=== PATIENT | male | born 1960 | race Caucasian/White ===

== ENCOUNTER → 2025-02-05 | Outpatient (CLI) | payer MEDICARE, OTHER, SELFPAY ==
--- OUTSIDE RECORDS SUMMARY | 2025-02-05 09:23 | XMS RPT_ITS | CCD ---
Author Organization [facility] Care Team Providers Care Fisher Pot Name Role Phone Jose Dela Cruz Unavailable Jarrell Burt Unavailable Tino Cardenas Unavailable Unavailable Unavailable Tino Cardenas Unavailable Unavailable Unavailable Shira Funez Primary Care Provider Shira Funez Primary Care Provider Shira Funez DO Primary Care Provider [phone] Tino Cardenas PA-C Unavailable [phone] Angie Luther Primary Care Provider ANGIE IBARRA Attending Unavailable ANGIE IBARRA Primary Care Unavailable ANGIE IBARRA Primary Care Unavailable SELF Referring Unavailable ARA ZAMAN II Attending Unavailabl e Medications Current Medications Medication Drug Class(es) Dates Sig (Normalized) Sig (Original) amLODIPine 5 mg oral tablet (15 sources) Dihydropyridine Calcium Channel Cedric Start: 03-19-2024 take 1 tablet by mouth once daily amLODIPine (Norvasc) 5 mg tablet Indications: Primary hypertension Take 1 tablet (5 mg) by mouth once daily. as directed 90 tablet 3 03/19/2024 Active Start: 05-03-2023 End: 03-19-2024 amLODIPine (Norvasc) 5 mg ta blet Indications: Primary hypertension TAKE 1 TABLET DAILY DIRECTED 90 tablet 3 05/03/2023 03/19/2024 Discontinued (Reorder) Start: 2020 take 1 tablet by pradeep th once daily amLODIPine Besylate 5 MG Oral Tablet TAKE 1 TABLET DAILY DIRECTED. Quantity: 90 Refills: 3 Ordered: 21-Feb-2022 Tino Cardenas PA-C Start : 02-Dec-2020 Active End: 03-19-2024 take 1 tablet by mouth once daily amLODIPine (Norvasc) 10 mg tablet Take 1 tablet (10 mg) by mouth once daily. 03/19/2024 Discontinued (Therapy completed) take 1 tablet by pradeep th once daily amLODIPine 5 mg oral tablet ; 1 tab(s) orally once a day Quantity: 0 Refills: 0 Ordered: 21-Nov-2020 Savannah Reyna Generic Substitution Allowed Comment on above: Take 10 mg by mouth once daily. amoxicillin 875 mg / clavulanate 125 mg oral tablet (1 source) Penicillin-class Antibacterial Start: 2020 End: 2020 take 1 tablet by mouth every twelve hours Augmentin 875 mg-125 mg oral tablet ; 1 tab(s) orally every 12 hours Quantity: 20 Refills: 0 Ordered: 21-Nov-2020 Jarrell Butr Start: 21-Nov-2020 End: 30-Nov-2020 Generic Substitution Allowed Comments: Finish all this medication unless otherwise directed by prescriber.Take with food or milk. Comment on above: Finish all this medi cation unless otherwise directed by prescriber.Take with food or milk. baclofen 10 mg oral tablet (1 source) gamma-Aminobutyric Acid-ergic Agonist Start: 2020 End: 2020 take 1 tablet by mouth once daily baclofen 10 mg oral tablet ; 1 tab(s) orally once a day (at bedtime) Quantity: 7 Refills: 0 Ordered: 21-Nov-2020 Jarrell Burt Start: 21-Nov-2020 End: 27-Nov-2020 Generic Substitution Allowed Comments: It is very important that you take or use this exactly as directed. Do not skip doses or discontinue unless directed by your doctor.May cause drowsiness. Alcohol may intensify this effect. Use care when operating dangerous machinery.Obtain medical advice before taking any non-prescription drugs as some may affect the action of this medication. Comment on above: It is very important that you take or use this exactly as directed. Do not skip doses or discontinue unless directed by your doctor.May cause drowsiness. Alcohol may intensify this effect. Use care when operating dangerous machinery.Obtain medical advice before taking any non-prescription drugs as some may affect the action of this medication. celecoxib 100 mg oral capsule (3 sources) Nonsteroidal Anti-inflammatory Drug Start: 2023 End: 2024 take 1 capsule by mouth twice daily as needed for pain celecoxib (CeleBREX) 100 mg capsule Indications: Polyarthralgia Take 1 capsule (100 mg) by mouth 2 times a day as needed for mild pain (1 - 3). 180 capsule 3 03/19/2024 03/14/2025 Active doxycycline monohydrate 100 mg oral capsule (1 source) Tetracycline-class Drug Start: 2020 End: 2020 take 1 capsule by mouth twice daily doxycycline monohydrate 100 mg oral capsule ; 1 cap(s) orally 2 times a day Quantity: 14 Refills: 0 Ordered: 21-Nov-2020 Jarrell Burt Start: 21-Nov-2020 End: 27-Nov-2020 Generic Substitution Allowed Comments: Avoid prolonged or excessive exposure to direct and/or artificial sunlight while taking this medication.Do not take this drug if you are .Finish all this medication unless otherwise directed by prescriber.Medicatio n should be taken with plenty of water. Comment on above: Avoid prolonged or e xcessive exposure to direct and/or artificial sunlight while taking this medication.Do not take this drug if you are .Finish all this medication unless otherwise directed by prescriber.Medication should be taken with plenty of water. hydroCHLOROthiazide 12.5 mg / losartan potassium 100 mg oral tablet (10 sources) Thiazide Diuretic, Angiotensin 2 Receptor Cedric Start: 2023 losartan-hydrochloro thiazide (Hyzaar) 100-12.5 mg tablet Indications: Primary hypertension TAKE 1 TABLET DAILY 90 tablet 3 02/12/2024 Active Start: 2020 take 1 tablet by pradeep th once daily Losartan Potassium-HCTZ 100-12.5 MG Oral Tablet TAKE 1 TABLET DAILY. Quantity: 90 Refills: 3 Ordered: 21-Feb-2022 Tino Cardenas PA-C Start : 02-Dec-2020 Active Start: 2020 Hyzaar 100-12. 5 MG Oral Tablet Quantity: 0 Refills: 0 Ordered: 02-Dec-2020 Tino Cardenas PA-C Start : 02-Dec-2020 Active take 1 tablet by pradeep th once daily losartan-hydrochlorothiazide 100mg-12.5mg oral tablet ; 1 tab(s) orally once a day Quantity: 0 Refills: 0 Ordered: 21-Nov-2020 Savannah Reyna Generic Substitution Allowed ketorolac tromethamine 10 mg oral tablet (1 source) Nonsteroidal Anti-inflammatory Drug, Cyclooxygenase Inhibitor Start: 11-21-2020 End: 11-23-2020 take 1 tablet by mouth three times daily at mealtime ketorolac 10 mg oral tablet ; 1 tab(s) orally 3 times a day TAKE WITH FOOD AND DRINK Quantity: 9 Refills: 0 Ordered: 21-Nov-2020 Jarrell Burt Start: 21-Nov-2020 End: 23-Nov-2020 Generic Substitution Allowed Comments: It is very important that you take or use this exactly as directed. Do not skip doses or discontinue unless directed by your doctor.May cause drowsiness or dizziness.Obtain medical advice before taking any non-prescription drugs as some may affect the action of this medication.Take with food or milk. Comment on above: It is very important that you take or use this exactly as directed. Do not skip doses or discontinue unless directed by your doctor.May cause drowsiness or dizziness.Obtain medical advice before taking any non-prescription drugs as some may affect the action of this medication.Take with food or milk. phenylephrine hydrochloride 25 mg/ml ophthalmic solution (1 source) alpha-1 Adrenergic Agonist Start: 06-21-2023 End: 06-21-2023 PHENYLephrine 2.5 % 1 Drop (AK-DILATE, JS-SYNEPHRINE) rosuvastatin calcium 20 mg oral tablet (13 sources) HMG-CoA Reductase Inhibitor Start: 02-12-2024 rosuvastatin (Crestor) 20 mg tablet Indications: Dyslipidemia TAKE 1 TABLET DAILY 90 tablet 3 02/12/2024 Active Start: 2020 take 1 tablet by pradeep th once daily Rosuvastatin Calcium 20 MG Oral Tablet TAKE 1 TABLET DAILY. Quantity: 90 Refills: 3 Ordered: 21-Feb-2022 Newbill PA-C, Tino Start : 02-Dec-2020 Active Start: 2020 Crestor 20 MG Oral Tablet Quantity: 0 Refills: 0 Ordered: 02-Dec-2020 Newbill PA-C, Tino Start : 02-Dec-2020 Active take 1 tablet by pradeep th once daily Crestor 10 mg oral tablet ; 1 tab(s) orally once a day Quantity: 0 Refills: 0 Ordered: 21-Nov-2020 Agueda Rondon Generic Substitution Allowed Comment on above: Take 20 mg by mouth once daily. Completed/Discontinued Medications Medication Drug Class(es) Dates Sig (Normalized) Sig (Original) ascorbic acid 500 mg chewable tablet (9 sources) Vitamin C Start: 2020 EQL Vitamin C 500 MG Oral Tablet Quantity: 0 Refills: 0 Ordered: 02-Dec-2020 Newbill PA-C, Tino Start : 02-Dec-2020 Active Start: 2020 EQL Vitamin C 500 MG Oral Tablet Quantity: 0 Refills: 0 Ordered: 02-Dec-2020 Newbill PA-C, Tino Start : 02-Dec-2020 Active take 1 tablet by pradeep th once daily Vitamin C 500 mg oral tablet ; 1 tab(s) orally once a day Quantity: 0 Refills: 0 Ordered: 21-Nov-2020 Savannah Reyna Generic Substitution Allowed azithromycin 250 mg oral tablet (1 source) Macrolide Antimicrobial Start: 04-19-2022 Azithromycin 250 MG Oral Tablet TAKE DIRECTED PER PACKAGE INSTRUCTIONS. Quantity: 6 Refills: 0 Ordered: 19-Apr-2022 Newbill PA-C, Tino Start : 19-Apr-2022 Active brompheniramine maleate 0.4 mg/ml / dextromethorphan hydrobromide 2 mg/ml / pseudoephedrine hydrochloride 6 mg/ml oral solution (1 source) alpha-Adrenergic Agonist, Uncompetitive Q-smhtni-K-aspartat e Receptor Antagonist, Sigma-1 Agonist Start: 04-19-2022 take 5-10 mL by mouth every four to six hours as needed for cough Pseudoeph-Bromphen -DM 30-2-10 MG/5ML Oral Syrup take 5-10 mL po q4-6 hrs prn cough, cold, or allergy symptoms Quantity: 200 Refills: 0 Ordered: 19-Apr-2022 Tino Cardenas PA-C Start : 19-Apr-2022 Active dexamethasone 6 mg oral tablet (1 source) Corticosteroid Start: 04-19-2022 take 1 tablet by mouth once daily Dexamethasone 6 MG Oral Tablet TAKE 1 TABLET DAILY. Quantity: 5 Refills: 0 Ordered: 19-Apr-2022 Tino Cardenas PA-C Start : 19-Apr-2022 Active losartan potassium 50 mg oral tablet (4 sources) Angiotensin 2 Receptor Cedric Start: 03-08-2016 losartan (COZAAR) 50 mg tablet take 1 tablet by mouth once lavonne y losartan 25 mg oral tablet ; 1 tab(s) orally once a day Quantity: 0 Refills: 0 Ordered: 21-Nov-2020 Agueda Rondon Status: Other Generic Substitution Allowed Problems Active Problems Problem Classification Problem Date Documented Da te Episodic/Chronic Blindness and vision defects (15 sources) Hypermetropia; Translations: [Hypermetropia, unspecified eye] Onset: 4 02-05-2014 Episodic Coagulation and hemorrhagic disorders (1 source) Platelet count below reference range; Translations: [Thrombocytopenia, unspecified] 11-21-2020 Chronic Diseases of white blood cells (2 sources) Leukopenia; Translations: [Leukocytopenia, unspecified] 11-21-2020 Chronic Disorders of lipid metabolism (8 sources) Dyslipidemia; Translations: [Other and unspecified hyperlipidemia] Chronic Essential hypertension (20 sources) Essential hypertension; Translations: [Unspecified essential hypertension] Onset: 4 03-19-2024 Chronic Fever of unknown origin (2 sources) Fever; Translations: [Fever, unspecified] 11-21-2020 Episodic Osteoarthritis (4 sources) Arthritis of joint of toe; Translations: [Primary osteoarthritis, unspecified ankle and foot] Onset: 4 03-19-2024 Chronic Other eye disorders (3 sources) Vitreous floaters; Translations: [Other vitreous opacities, unspecified eye] Onset: 5 05-04-2015 Chronic Other eye disorders (1 source) Bilateral vitreous floaters; Translations: [Other vitreous opacities, bilateral] 06-21-2023 Chronic Other eye disorders (1 source) Dry eyes; Translations: [Dry eye syndrome of bilateral lacrimal glands] Episodic Other eye disorders (1 source) Subconjunctival hemorrhage of left eye; Translations: [Conjunctival hemorrhage, left eye] Episodic Other gastrointestinal disorders (2 sources) Splenomegaly; Translations: [Splenomegaly] 11-21-2020 Episodic Other infections; including parasitic (8 sources) History of glandular fever; Translations: [Personal history of other infectious and parasitic diseases] Episodic Other liver diseases (1 source) Enzyme level - finding; Translations: [Nonspecific elevation of levels of transaminase or lactic acid dehydrogenase [LDH]] 11-21-2020 Episodic Other lower respiratory disease (5 sources) Dyspnea on exertion; Translations: [Shortness of breath] Episodic Other non-traumatic joint disorders (2 sources) Multiple joint pain; Translations: [Pain in unspecified joint] 03-19-2024 Episodic Other non-traumatic joint disorders (2 sources) Pain in unspecified joint; Translations: [Pain in unspecified joint] Onset: 4 Episodic Other nutritional; endocrine; and metabolic disorders (8 sources) History of hypercholesterolemia; Translations: [Personal history of other endocrine, metabolic, and immunity disorders] Episodic Other screening for suspected conditions (not mental disorders or infectious disease) (5 sources) Patient encounter status; Translations: [Encounter for screening for malignant neoplasm of prostate] Onset: 4 03-19-2024 Episodic Unclassified (2 sources) NECK PAIN, BODY PAIN 11-21-2020 Comment on above: NECK PAIN, BODY PAIN Unclassified (1 source) Transaminitis 11-21-2020 Unclassified (1 source) Thrombocytopenia 11-21-2020 Viral infection (1 source) Disease caused by 2019-nCoV; Translations: [Other specified viral infection] Episodic Past or Other Problems Problem Classification Problem Date Documented Da te Episodic/Chronic Unclassified (1 source) Onset: 03-15-2023 03-15-2023 Results Test Name Value Interpretation Reference Range Facility CBC W Auto Differential pane l (Bld)on 04-12-2024 Basophils (Bld) [#/Vol] 0.04 x10*3/uL Normal 0.00-0.10 [facility] Comment on above: Performed By: #### 5 7021-8 #### LEUNG MERARY ([id number]) [facility] [address] [place] [address] 58624 Basophils/100 WBC (Bld) 0.7 % Normal 0.0-2.0 [facility] Comment on above: Performed By: #### 5 7021-8 #### MADHU REAGAN ([id number]) [facility] [address] [place] [address] 93355 Eosinophils (Bld) [#/Vol] 0.14 x10*3/uL Normal 0.00-0.70 [facility] Comment on above: Performed By: #### 7021-8 #### MADHU REAGAN ([id number]) [facility] [address] [place] [address] 99845 Eosinophils/100 WBC (Bld) 2.3 % Normal 0.0-6.0 [facility] Comment on above: Performed By: #### 5 7021-8 #### MADHU REAGAN ([id number]) [facility] [address] [place] [address] 63047 Erythrocyte distribution width (RBC) [Ratio] 12.2 % Normal 11.5-14.5 [facility] Comment on above: Performed By: #### 5 7021-8 #### MADHU REAGAN ([id number]) [facility] [address] [place] [address] 54893 Hematocrit (Bld) [Volume fraction] 47.9 % Normal 41.0-52.0 [facility] Comment on above: Performed By: #### 5 7021-8 #### MADHU REAGAN ([id number]) [facility] [address] [place] [address] 31873 Hemoglobin (Bld) [Mass/Vol] 16.1 g/dL Normal 13.5-17.5 [facility] Comment on above: Performed By: #### 5 7021-8 #### MADHU REAGAN ([id number]) [facility] [address] [place] [address] 10150 Immature granulocytes (Bld) [#/Vol] 0.01 x10*3/uL Normal 0.00-0.70 [facility] Comment on above: Performed By: #### 5 7021-8 #### MADHU REAGAN ([id number]) [facility] [address] [place] [address] 69808 Immature granulocytes/100 WBC (Bld) 0.2 % Normal 0.0-0.9 [facility] Comment on above: Result Comment: Ilsa ture Granulocyte Count (IG) includes promyelocytes, myelocytes and metamyelocytes but does not include bands. Percent differential counts (%) should be interpreted in the context of the absolute cell counts (cells/UL). Performed By: #### 5 7021-8 #### MADHU REAGAN ([id number]) [facility] [address] [place] [address] Lymphocytes (Bld) [#/Vol] 1.83 x10*3/uL Normal 1.20-4.80 [facility] Comment on above: Performed By: #### 5 7021-8 #### MADHU REAGAN ([id number]) [facility] [address] [place] [address] 18173 Lymphocytes/100 WBC (Bld) 30.2 % Normal 13.0-44.0 [facility] Comment on above: Performed By: #### 5 7021-8 #### MADHU REAGAN ([id number]) [facility] [address] [place] [address] 80649 MCH (RBC) [Entitic mass] 30.5 pg Normal 26.0-34.0 [facility] Comment on above: Performed By: #### 5 7021-8 #### MADHU REAGAN ([id number]) [facility] [address] [place] [address] 80473 MCHC (RBC) [Mass/Vol] 33.6 g/dL Normal 32.0-36.0 [facility] Comment on above: Performed By: #### 5 7021-8 #### MADHU REAGAN ([id number]) [facility] [address] [place] [address] 08038 MCV (RBC) [Entitic vol] 91 fL Normal 80-100 [facility] Comment on above: Performed By: #### 5 7021-8 #### MADHU REAGAN ([id number]) [facility] [address] [place] [address] 08936 Monocytes (Bld) [#/Vol] 0.60 x10*3/uL Normal 0.10-1.00 [facility] Comment on above: Performed By: #### 5 7021-8 #### MADHU REAGAN ([id number]) [facility] [address] [place] [address] 10796 Monocytes/100 WBC (Bld) 9.9 % Normal 2.0-10.0 [facility] Comment on above: Performed By: #### 5 7021-8 #### MADHU REAGAN ([id number]) [facility] [address] [place] [address] 50334 Neutrophils (Bld) [#/Vol] 3.43 x10*3/uL Normal 1.20-7.70 [facility] Comment on above: Result Comment: Perc ent differential counts (%) should be interpreted in the context of the absolute cell counts (cells/uL). Performed By: #### 5 7021-8 #### MADHU REAGAN ([id number]) [facility] [address] [place] [address] 51177 Neutrophils/100 WBC (Bld) 56.7 % Normal 40.0-80.0 [facility] Comment on above: Performed By: #### 5 7021-8 #### MADHU REAGAN ([id number]) [facility] [address] [place] [address] 98857 Nucleated RBC/100 WBC (Bld) [Ratio] 0.0 /100 WBCs Normal 0.0-0.0 [facility] Comment on above: Performed By: #### 5 7021-8 #### MADHU REAGAN ([id number]) [facility] [address] [place] [address] 82682 Platelets (Bld) [#/Vol] 202 x10*3/uL Normal 150-450 [facility] Comment on above: Performed By: #### 5 7021-8 #### MADHU REAGAN ([id number]) [facility] [address] [place] [address] 67925 RBC (Bld) [#/Vol] 5.28 x10*6/uL Normal 4.50-5.90 [facility] Comment on above: Performed By: #### 5 7021-8 #### MADHU REAGAN ([id number]) [facility] [address] [place] [address] 99056 WBC (Bld) [#/Vol] 6.1 x10*3/uL Normal 4.4-11.3 [facility] Comment on above: Performed By: #### 5 7021-8 #### MADHU REAGAN ([id number]) [facility] [address] [place] [address] Comprehensive metabolic 2000 panelon 04-12-2024 Albumin BCP dye [Mass/Vol] 4.6 g/dL Normal 3.4-5.0 [facility] Comment on above: Performed By: #### 2 4323-8 #### MADHU REAGAN ([id number]) [facility] [address] [place] [address] ALP [Catalytic activity/Vol] 56 U/L Normal 33-136 [facility] Comment on above: Performed By: #### 2 4323-8 #### MADHU REAGAN ([id number]) [facility] [address] [place] [address] 53658 ALT With P-5'-P [Catalytic activity/Vol] 37 U/L Normal 10-52 [facility] Comment on above: Result Comment: Ave ents treated with Sulfasalazine may generate falsely decreased results for ALT. Performed By: #### 2 4323-8 #### MADHU REAGAN ([id number]) [facility] [address] [place] [address] 63214 Anion gap [Moles/Vol] 10 mmol/L Normal 10-20 [facility] Comment on above: Performed By: #### 2 4323-8 #### MADHU REAGAN ([id number]) [facility] [address] [place] [address] AST With P-5'-P [Catalytic activity/Vol] 27 U/L Normal 9-39 [facility] Comment on above: Performed By: #### 2 3-8 #### MADHU REAGAN ([id number]) [facility] [address] [place] [address] Bilirubin [Mass/Vol] 1.1 mg/dL Normal 0.0-1.2 [facility] Comment on above: Performed By: #### 2 4322-8 #### MADHU REAGAN ([id number]) [facility] [address] [place] [address] 86830 Calcium [Mass/Vol] 9.9 mg/dL Normal 8.6-10.3 [facility] Comment on above: Performed By: #### 2 4322-8 #### MADHU REAGAN ([id number]) [facility] [address] [place] [address] Chloride [Moles/Vol] 102 mmol/L Normal 98-107 [facility] Comment on above: Performed By: #### 2 432-8 #### MADHU REAGAN ([id number]) [facility] [address] [place] [address] CO2 [Moles/Vol] 29 mmol/L Normal 21-32 [facility] Comment on above: Performed By: #### 2 432-8 #### MADHU REAGAN ([id number]) [facility] [address] [place] [address] Creatinine [Mass/Vol] 0.92 mg/dL Normal 0.50-1.30 [facility] Comment on above: Performed By: #### 2 432-8 #### MADHU REAGAN ([id number]) [facility] [address] [place] [address] GFR/1.73 sq M.predicted MDRD (S/P/Bld) [Vol rate/Area] mL/min/{1.73_m2} Normal >60 [facility] Comment on above: Result Comment: Calc ulations of estimated GFR are performed using the 2020 CKD-EPI Study Refit equation without the race variable for the IDMS-Traceable creatinine methods. https://jasn.asnjournals.org/content//ASN.15279648 88 Performed By: #### 2 4323-8 #### MADHU REAGAN ([id number]) [facility] [address] [place] [address] 88803 Glucose [Mass/Vol] 105 mg/dL High 74-99 [facility] Comment on above: Performed By: #### 2 4323-8 #### MADHU REAGAN ([id number]) [facility] [address] [place] [address] 36923 Potassium [Moles/Vol] 4.1 mmol/L Normal 3.5-5.3 [facility] Comment on above: Performed By: #### 2 4323-8 #### MADHU REAGAN ([id number]) [facility] [address] [place] [address] 06826 Protein [Mass/Vol] 7.1 g/dL Normal 6.4-8.2 [facility] Comment on above: Performed By: #### 2 4323-8 #### MADHU REAGAN ([id number]) [facility] [address] [place] [address] 69646 Sodium [Moles/Vol] 137 mmol/L Normal 136-145 [facility] Comment on above: Performed By: #### 2 4323-8 #### MADHU REAGAN ([id number]) [facility] [address] [place] [address] 69078 Urea nitrogen [Mass/Vol] 13 mg/dL Normal 6-23 [facility] Comment on above: Performed By: #### 2 4323-8 #### MADHU REAGAN ([id number]) [facility] [address] [place] [address], [place] [address] HbA1c (Bld) [Mass fraction]o n 04-12-2024 Average glucose Estimated from glycated hemoglobin (Bld) [Mass/Vol] 97 mg/dL Normal Not Established [facility] Comment on above: Order Comment: Diagn osis of Diabetes-Adults Non-Diabetic: < or = 5.6% Increased risk for developing diabetes: 5.7-6.4% Diagnostic of diabetes: > or = 6.5% Performed By: #### 4 548-4 #### VICKIE Larson ([id number]) [facility] ([facility]) [id number] [place] [address] 83986 Hemoglobin A1c/Hemoglobin.to jeison 04-12-2024 HbA1c (Bld) [Mass fraction] 5.0 % Normal See comment [facility] Comment on above: Order Comment: Diagn osis of Diabetes-Adults Non-Diabetic: < or = 5.6% Increased risk for developing diabetes: 5.7-6.4% Diagnostic of diabetes: > or = 6.5% Performed By: #### 4 548-4 #### VICKIE Larson ([id number]) [facility] ([facility]) [address] [place] [address] 91289 Lipid 1996 panelon 4 Cholesterol [Mass/Vol] 216 mg/dL High 0-199 [facility] Comment on above: Result Comment: Age Desirable Borderline High High 0-19 Y 0 - 169 170 - 199 >/= 200 20-24 Y 0 - 189 190 - 224 >/= 225 >24 Y 0 - 199 200 - 239 >/= 240 All ranges are based on fasting samples. Specific therapeutic targets will vary based on patient-specific cardiac risk. Pediatric guidelines reference:Pediatrics 2011, 128(S5).Adult guidelines reference: NCEP ATPIII Guidelines,PAULINA 2001, 258:2486-97 Venipuncture immediately after or during the administration of Metamizole may lead to falsely low results. Testing should be performed immediately prior to Metamizole dosing. Performed By: #### 2 4331-1 #### MADHU REAGAN ([id number]) [facility] [place] [address] Cholesterol in HDL [Mass/Vol] 58.0 mg/dL Normal [facility] Comment on above: Result Comment: Age Very Low Low Normal High 0-19 Y < 35 < 40 40-45 ---- 20-24 Y ---- < 40 >45 ---- >24 Y ---- < 40 40-60 >60 Performed By: #### 2 4331-1 #### MADHU REAGAN ([id number]) [facility] [address] [place] [address] Cholesterol in LDL [Mass/Vol] 131 mg/dL High <=99 [facility] Comment on above: Result Comment: Near Borderline AGE Desirable Optimal High High Very High 0-19 Y 0 - 109 --- 110-129 >/= 130 ---- 20-24 Y 0 - 119 --- 120-159 >/= 160 ---- >24 Y 0 - 99 100-129 130-159 160-189 >/=190 Performed By: #### 2 4331-1 #### MADHU REAGAN ([id number]) [facility] [place] [address] Cholesterol in VLDL [Mass/Vol] 27 mg/dL Normal 0-40 [facility] Comment on above: Performed By: #### 2 4331-1 #### MADHU REAGAN ([id number]) [facility] [place] [address] CHOLESTEROL/HDL RATIO 3.7 Normal [facility] Comment on above: Result Comment: Ref Values Desirable < 3.4 High Risk > 5.0 Performed By: #### 2 4331-1 #### MADHU REAGAN ([id number]) [facility] [place] [address] NON HDL CHOLESTEROL 158 mg/dL High 0-149 [facility] Comment on above: Result Comment: Age Desirable Borderline High High Very High 0-19 Y 0 - 119 120 - 144 >/= 145 >/= 160 20-24 Y 0 - 149 150 - 189 >/= 190 ---- >24 Y 30 mg/dL above LDL Cholesterol goal Performed By: #### 2 4331-1 #### MADHU REAGAN ([id number]) [facility] [place] [address] Triglyceride [Mass/Vol] 136 mg/dL Normal 0-149 [facility] Comment on above: Result Comment: Age Desirable Borderline High Very High SEX:B mg/dL mg/dL mg/dL mg/dL <=14D 86-277 ---- ---- ---- 15D-365D 55-277 ---- ---- ---- 1Y-9Y 0-74 75-99 >=100 ---- 10Y-19Y 0-89 90-129 >=130 ---- 20Y-24Y 0-114 115-149 >=150 ---- >= 25Y 0-149 150-199 200-499 >=500 Venipuncture immediately after or during the administration of Metamizole may lead to falsely low results. Testing should be performed immediately prior to Metamizole dosing. Performed By: #### 2 4331-1 #### MADHU REAGAN ([id number]) [facility] [address] [place], [place] [id number] Prostate specific Agon 04-12 Prostate specific Ag [Mass/Vol] 1.33 ng/mL Normal <=4.00 [facility] Comment on above: Order Comment: The DA requires that the method used for PSA assay be reported to the physician. Values obtained with different assay methods must not be used interchangeably. This test was performed at [facility] using the Red-rabbit PSA assay is a two-site immunoenzymatic sandwich assay. The assay is approved for measurement of prostate-specific antigen (PSA)in serum and may be used in conjunction with a digital rectal examination in men 50 years and older as an aid in detection of prostate cancer. 6-Pubar-yftlbgmnq inhibitors (e.g. Proscar, Finasteride, Avodart, Dutasteride and Milagros) for the treatment of BPH have been shown to lower PSA levels by an average of 50% after 6 months of treatment. Performed By: #### 2 857-1 #### MADHU REAGAN ([id number]) [facility] [address] [place] [address] TSH WITH REFLEX TO FREE T4 I F ABNORMALon 04-12-2024 TSH Qn 1.95 m[IU]/L Normal 0.44-3.98 [facility] Comment on above: Order Comment: TSH t esting is performed using different testing methodology at [facility] than at other [facility]. Direct result comparisons should only be made within the same method. Performed By: #### T THA #### LEUNG MERARY ([id number]) [facility] [address] [place] [address] CHEST 2 VIEW PA AND LATon CHEST 2 VIEW PA AND LAT Patient Name: ADVID DEL VALLE STUDY: TH CHEST 2 VIEW PA AND LAT; 12/06/2021 9:15 am INDICATION: LIMA, Hx of mononucleosis as adult E78.5: Dyslipidemia I10: Essential hypertension R06.02: SOB (shortness of breath) on exertion. COMPARISON: 11/21/2020 ACCESSION NUMBER(S): [id number] ORDERING CLINICIAN: TINO CARDENAS TECHNIQUE: 2 radiographs of the chest are performed. FINDINGS: The heart is of normal size and contour. The pulmonary vessels are within normal limits. The lungs and the pleural spaces are clear. There is no pneumothorax. The osseous structures are intact. IMPRESSION: No sign of acute cardiopulmonary disease. Electronically signed by: LISE MERA MD Normal [facility] Electrocardiogram 12 Leadon 12-06-2021 Electrocardiogram 12 Lead Ventricular Rate 72 Atrial Rate 72 P-R Interval 160 QRS Duration 104 Q-T Interval 408 QTC Calculation(Bazett) 446 P Highwood 48 R Highwood 5 T Highwood 38 QRS Count 12 Q Onset 218 P Onset 138 P Offset 197 T Offset 422 QTC Fredericia 433 Diagnosis Class Abnormal Diagnosis Normal sinus rhythm Normal ECG When compared with ECG of 06-DEC-2021 09:00, Previous ECG has undetermined rhythm, needs review Questionable change in QRS duration Criteria for Anterior infarct are no longer present Criteria for Anterolateral infarct are no longer present Criteria for Inferior infarct are no longer present Confirmed by Sami Stevens ([id number]) on 12/06/2021 8:39:35 PM Normal [facility] No Panel Informationon 12-06 [email or web address] ?[email or web address]=[id number]&Date =04-04-2022&Time=09%3a02% 3a19%3a00&TestType=ECG&Si te=14&OutputType=PDF&Ext= PDF [facility] Work Phone: [phone] Normal sinus rhythm [facility] Work Phone: [phone] Abnormal [facility] Work Phone: [phone] 1 [facility] Work Phone: [phone] 1 [facility] Work Phone: [phone] 1 [facility] Work Phone: [phone] 1 [facility] Work Phone: [phone] 1 [facility] Work Phone: [phone] 1 [facility] Work Phone: [phone] 1 [facility] Work Phone: [phone] 1 [facility] Work Phone: [phone] 1 [facility] Work Phone: [phone] 1 [facility] Work Phone: [phone] 1 [facility] Work Phone: [phone] 1 [facility] Work Phone: [phone] 1 [facility] Work Phone: [phone] 1 [facility] Work Phone: [phone] Radiologyon 12-06-2021 XR Chest 2 Views Normal [facility] Work Phone: [phone] Office Visit (Internal Medic ine)on 12-01-2021 Follow-up visit Diagnoses/Problems Health Maintenance/Risks Encounter for preventive health examination (V70.0) (Z00.00) Assessed Dyslipidemia (272.4) (E78.5) Essential hypertension (401.9) (I10) SOB (shortness of breath) on exertion (786.05) (R06.02) Orders Dyslipidemia, Essential hypertension, SOB (shortness of breath) on exertion Electrocardiogram 12 Lead; Status:Active; Requested for:[id number]; Perform:[facility]; Due:01Mar2022;Ordered; For:Dyslipidemia, Essential hypertension, SOB (shortness of breath) on exertion; Ordered By:Tino Cardenas; Xray Chest 2 View PA + Lateral; Status:Hold For - Scheduling; Requested for:[id number]; Perform:[facility]; Due:01Mar2022;Ordered; For:Dyslipidemia, Essential hypertension, SOB (shortness of breath) on exertion; Ordered By:Tino Cardenas; Radiologist to Determine Optimal Study : Y What are the patient's signs and symptoms? : Mara LIMA of mononucleosis as adult Patient Discussion/Summary Essential hypertension: Continue amlodipine, losartan, and hydrochlorothiazide Dyslipidemia: Continue rosuvastatin Dyspnea on exertion: EKG and chest x-ray ordered. Offered cardiology evaluation, patient declined at this time but will consider and contact office if this changes. Further recommendations pending results. With normalization of labs and vitals, we will have the patient follow-up in 1 year or as needed. We will draw labs at that time. Chief Complaint Patient here today for follow up 6 months. Patient states has noticed intermittent cough and questions if d/t new meds. Patient offers no other complaints. History of Present IllnessPatient presents in 6-month follow-up of hypertension and dyslipidemia. Patient reports no issues with medication. Most recent lipid panel was unremarkable. Patient's blood pressure on intake was good today. Patient reports some lingering effects from having mono. Reports intermittent fatigue but the patient believes it is more than should be attributed to age. Patient also does report dyspnea on exertion and intermittent palpitations. Patient has family history of cardiovascular disease with father having had cardiac surgery of some type. Patient has had 2 stress tests in the past that were unremarkable. Review of Systems Constitutional: as noted in HPI. Cardiovascular: as noted in HPI. Respiratory: as noted in HPI. Active Problems Problems Dyslipidemia (272.4) (E78.5) Essential hypertension (401.9) (I10) Past Medical History Problems History of hypercholesterolemia (V12.29) (Z86.39) History of Hypertension, essential, benign (401.1) (I10) Family History Mother Family history of lung disease (V19.8) (Z83.6) Father Family history of cardiac disorder (V17.49) (Z82.49) Social History Problems Never smoker Social alcohol use (V49.89) (Z78.9) Allergies Medication No Known Drug Allergies Recorded By: Madina Verma; 2020 8:56:24 AM Current Meds Medication NameInstruction amLODIPine Besylate 5 MG Oral TabletTAKE 1 TABLET DAILY DIRECTED. EQL Vitamin C 500 MG Oral Tablet Losartan Potassium-HCTZ 100-12.5 MG Oral TabletTAKE 1 TABLET DAILY. Rosuvastatin Calcium 20 MG Oral TabletTAKE 1 TABLET DAILY. Vitals Vital Signs Recorded: [id number] 07:26AM Heart Rate64 Mytcekmm882 Coshzwjpa89 Height6 ft Degezx176 lb 1.6 oz BMI Vggbvlliqj71.72 kg/m2 BSA Calculated2.21 Tobacco Useb) No PHQ-2 #1. Over the last 2 weeks have you felt down, depressed or hopeless? (If yes, answer PHQ-9 below)No Falls Screening (Age 18+)a) No falls within the last year Physical Exam Constitutional General appearance: Alert and in no acute distress. Eyes Inspection of eyes: Sclera and conjunctiva were normal. Ears, Nose, Mouth, and Throat Ears: Auricles: Normal. Pulmonary Respiratory assessment: No respiratory distress, normal respiratory rhythm and effort. Musculoskeletal Examination of gait: Normal. Skin Skin inspection: Normal skin color and pigmentation, normal skin turgor and no visible rash. Neurologic Cranial nerves: Nerves 2-12 were intact, no focal neuro defects. Signatures Electronically signed by : Tino Cardenas PA-C; Dec 01 2021 7:50AM EST (Author) Normal [facility] Tobacco Screening.on 022 Adult depression screening assessment No [facility] Work Phone: Fall risk assessment a) No falls within the last year [facility] Work Phone: Tobacco use status [facility] b) No [facility] Work Phone: LIPID PANEL (CORONARY RISK 2 )on 06-02-2021 Cholesterol [Mass/Vol] 174 mg/dL Normal 0 - 199 [facility] Comment on above: Result Comment: . AGE DESIRABLE BORDERLINE HIGH HIGH 0-19 Y 0 - 169 170 - 199 >/= 200 20-24 Y 0 - 189 190 - 224 >/= 225 >24 Y 0 - 199 200 - 239 >/= 240 All ranges are based on fasting samples. Specific therapeutic targets will vary based on patient-specific cardiac risk. . Pediatric guidelines reference:Pediatrics 2011, 128(S5). Adult guidelines reference: NCEP ATPIII Guidelines, PAULINA 2001, 258:2486-97 . Venipuncture immediately after or during the administration of Metamizole may lead to falsely low results. Testing should be performed immediately prior to Metamizole dosing. Performed By: #### L IPID #### [address] [address] Cholesterol in HDL [Mass/Vol] 52.0 mg/dL Normal [facility] Comment on above: Result Comment: . AGE VERY LOW LOW NORMAL HIGH 0-19 Y < 35 < 40 40-45 ---- 20-24 Y ---- < 40 >45 ---- >24 Y ---- < 40 40-60 >60 . Performed By: #### L IPID #### [address] [address] Cholesterol in LDL [Mass/Vol] 101 mg/dL High 0 - 99 [facility] Comment on above: Result Comment: . NEAR BORD AGE DESIRABLE OPTIMAL HIGH HIGH VERY HIGH 0-19 Y 0 - 109 --- 110-129 >/= 130 ---- 20-24 Y 0 - 119 --- 120-159 >/= 160 ---- >24 Y 0 - 99 100-129 130-159 160-189 >/=190 . Performed By: #### L IPID #### [address] [address] Cholesterol in VLDL [Mass/Vol] 21 mg/dL Normal 0 - 40 [facility] Comment on above: Performed By: #### L IPID #### [address] [address] Cholesterol.total/C holesterol in HDL [Mass ratio] 3.3 {ratio} Normal [facility] Comment on above: Result Comment: REF VALUES DESIRABLE < 3.4 HIGH RISK > 5.0 Performed By: #### L IPID #### [address] [address] Triglyceride [Mass/Vol] 106 mg/dL Normal 0 - 149 [facility] Comment on above: Result Comment: . AGE DESIRABLE BORDERLINE HIGH HIGH VERY HIGH 0 D-90 D 19 - 174 ---- ---- ---- 91 D- 9 Y 0 - 74 75 - 99 >/= 100 ---- 10-19 Y 0 - 89 90 - 129 >/= 130 ---- 20-24 Y 0 - 114 115 - 149 >/= 150 ---- >24 Y 0 - 149 150 - 199 200- 499 >/= 500 . Venipuncture immediately after or during the administration of Metamizole may lead to falsely low results. Testing should be performed immediately prior to Metamizole dosing. Performed By: #### L IPID #### [address] [address] Lipid Panelon 06-02-2021 Cholesterol [Mass/Vol] 174 mg/dL 0 - 199 [facility] Work Phone: Comment on above: . AGE DESIRABLE BORD ADIS HIGH HIGH 0-19 Y 0 - 169 170 - 199 >/= 200 20-24 Y 0 - 189 190 - 224 >/= 225 >24 Y 0 - 199 200 - 239 >/= 240 All ranges are based on fasting samples. Specific therapeutic targets will vary based on patient-specific cardiac risk.. Pediatric guidelines reference:Pediatrics 2011, 128(S5). Adult guidelines reference: NCEP ATPIII Guidelines, PAULINA 2001, 258:2486-97. Venipuncture immediately after or during the administration of Metamizole may lead to falsely low results. Testing should be performed immediately prior to Metamizole dosing. Cholesterol in HDL [Mass/Vol] 52.0 mg/dL [facility] Work Phone: Comment on above: . AGE VERY LOW LOW N ORMAL HIGH 0-19 Y < 35 < 40 40-45 ---- 20- 24 Y ---- < 40 >45 ---- >24 Y ---- < 40 40-60 >60. Cholesterol in LDL [Mass/Vol] 101 mg/dL above high threshold 0 - 99 [facility] Work Phone: [phone] Comment on above: . NEAR BORD AGE KULDIP RABLE OPTIMAL HIGH HIGH VERY HIGH 0-19 Y 0 - 109 --- 110-129 >/= 130 ---- 20-24 Y 0 - 119 --- 120-159 >/= 160 ---- >24 Y 0 - 99 100-129 130-159 160-189 >/=190. Cholesterol.total/C holesterol in HDL [Mass ratio] 3.3 {ratio} [facility] Work Phone: [phone] Comment on above: REF VALUESDESIRABLE < 3.4HIGH RISK > 5.0 Triglyceride [Mass/Vol] 106 mg/dL 0 - 149 [facility] Work Phone: Comment on above: . AGE DESIRABLE BORD ADIS HIGH HIGH VERY HIGH 0 D-90 D 19 - 174 ---- ---- ----91 D- 9 Y 0 - 74 75 - 99 >/= 100 ---- 10-19 Y 0 - 89 90 - 129 >/= 130 ---- 20-24 Y 0 - 114 115 - 149 >/= 150 ---- >24 Y 0 - 149 150 - 199 200- 499 >/= 500. Venipuncture immediately after or during the administration of Metamizole may lead to falsely low results. Testing should be performed immediately prior to Metamizole dosing. Lipid Panel 21 mg/dL 0 - 40 [facility] Work Phone: Office Visit (Internal Medic ine)on 06-02-2021 Follow-up visit Diagnoses/Problems Assessed Dyslipidemia (272.4) (E78.5) Orders Dyslipidemia Changed: From Crestor 20 MG Oral Tablet To Rosuvastatin Calcium 20 MG Oral Tablet (Crestor) TAKE 1 TABLET DAILY Rx By: Tino Cardenas; Dispense: 90 Days ; #:90 Tablet; Refill: 3;For: Dyslipidemia; JIGNESH = N; Record; Last Updated By: Dai Flynn; 06/02/2021 8:07:36 AM Lipid Panel; Status:Active; Requested for:02Jun2021; Perform:Lab Services - Lab To Draw (Blood Test); Due:31Aug2021;Ordered; For:Dyslipidemia; Ordered By:Tino Cardenas; Essential hypertension Changed: From Hyzaar 100-12.5 MG Oral Tablet To Losartan Potassium-HCTZ 100-12.5 MG Oral Tablet (Hyzaar) TAKE 1 TABLET DAILY Rx By: Tino Cardenas; Dispense: 90 Days ; #:90 Tablet; Refill: 3;For: Essential hypertension; JIGNESH = N; Record; Last Updated By: Dai Flynn; 06/02/2021 8:07:36 AM Patient Discussion/Summary Dyslipidemia: Lipid panel ordered, if not improved or worse, will increase Crestor to 40 mg daily. Follow-up in 6 months. Chief Complaint Patient here today for follow up 6 months. Patient offers no complaints and states mono symptoms of fatigue have resolved. History of Present IllnessPatient presents in 6-month follow-up. Patient recovered from the mononucleosis without issue. Patient states symptoms lasted about a month. Prior lipid draw showed mixed dyslipidemia despite the Crestor therapy. Review of Systems Constitutional: not feeling poorly. Respiratory: cough. Active Problems Problems Dyslipidemia (272.4) (E78.5) Essential hypertension (401.9) (I10) Past Medical History Problems History of hypercholesterolemia (V12.29) (Z86.39) History of infectious mononucleosis (V12.09) (Z86.19) History of Hypertension, essential, benign (401.1) (I10) Family History Mother Family history of lung disease (V19.8) (Z83.6) Father Family history of cardiac disorder (V17.49) (Z82.49) Social History Problems Never smoker Social alcohol use (V49.89) (Z78.9) Allergies Medication No Known Drug Allergies Recorded By: Madina Verma; 2020 8:56:24 AM Current Meds Medication NameInstruction amLODIPine Besylate 5 MG Oral TabletTAKE 1 TABLET DAILY DIRECTED. Crestor 20 MG Oral Tablet EQL Vitamin C 500 MG Oral Tablet Hyzaar 100-12.5 MG Oral Tablet Vitals Vital Signs Recorded: 02Jun2021 08:00AM Nyovtikyvpi85.4 F Heart Rate70 Irrnlrmp665 Arjfbbxtd38 Height6 ft Rxbfez126 lb 8.0 oz BMI Ignzaetphe63.04 kg/m2 BSA Calculated2.22 Tobacco Useb) No Fall Screeninga) No falls within the last year Physical Exam Constitutional General appearance: Alert and in no acute distress. Eyes Inspection of eyes: Sclera and conjunctiva were normal. Pulmonary Respiratory assessment: No respiratory distress, normal respiratory rhythm and effort. Cardiovascular Auscultation of heart: Apical pulse normal, heart rate and rhythm normal, normal S1 and S2, no murmurs and no pericardial rub. Musculoskeletal Examination of gait: Normal. Skin Skin inspection: Normal skin color and pigmentation, normal skin turgor and no visible rash. Neurologic Cranial nerves: Nerves 2-12 were intact, no focal neuro defects. Signatures Electronically signed by : Tino Cardenas PA-C; Jun 02 2021 8:14AM EST (Author) Normal [facility] Tobacco Screening.on 022 Fall risk assessment a) No falls within the last year [facility] Work Phone: Tobacco use status [facility] b) No [facility] Work Phone: Hemoglobin A1Con 2020 Glucose [Mass/Vol] 108 mg/dL [facility] Work Phone: HbA1c (Bld) [Mass fraction] 5.4 % [facility] Work Phone: Comment on above: Diagnosis of Diabete s-Adults Non-Diabetic: < or = 5.6% Increased risk for developing diabetes: 5.7-6.4% Diagnostic of diabetes: > or = 6.5%. Monitoring of Diabetes Age (y) Therapeutic Goal (%) Adults: >18 <7.0 Pediatrics: 13-18 <7.5 7-12 <8.0 0- 6 7.5-8.5 [employer]. Diabetes Care 33(S1), May 2009. Laboratory - Chemistry and C hemistry - challengeon 2020 TSH Qn 1.63 m[IU]/L See Below [facility] Work Phone: Comment on above: Reference Range: 0.4 4 - 3.98 TSH testing is performed using different testing methodology at [facility] than at other [facility]. Direct result comparisons should only be made within the same method. Lipid Panelon 2020 Cholesterol [Mass/Vol] 219 mg/dL above high threshold 0 - 199 [facility] Work Phone: Comment on above: . AGE DESIRABLE BORD ADIS HIGH HIGH 0-19 Y 0 - 169 170 - 199 >/= 200 20-24 Y 0 - 189 190 - 224 >/= 225 >24 Y 0 - 199 200 - 239 >/= 240 All ranges are based on fasting samples. Specific therapeutic targets will vary based on patient-specific cardiac risk.. Pediatric guidelines reference:Pediatrics 2011, 128(S5). Adult guidelines reference: NCEP ATPIII Guidelines, PAULINA 2001, 258:2486-97. Venipuncture immediately after or during the administration of Metamizole may lead to falsely low results. Testing should be performed immediately prior to Metamizole dosing. Cholesterol in HDL [Mass/Vol] 43.0 mg/dL [facility] Work Phone: Comment on above: . AGE VERY LOW LOW N ORMAL HIGH 0-19 Y < 35 < 40 40-45 ---- 20- 24 Y ---- < 40 >45 ---- >24 Y ---- < 40 40-60 >60. Cholesterol in LDL [Mass/Vol] 143 mg/dL above high threshold 0 - 99 [facility] Work Phone: Comment on above: . NEAR BORD AGE KULDIP RABLE OPTIMAL HIGH HIGH VERY HIGH 0-19 Y 0 - 109 --- 110-129 >/= 130 ---- 20-24 Y 0 - 119 --- 120-159 >/= 160 ---- >24 Y 0 - 99 100-129 130-159 160-189 >/=190. Cholesterol.total/C holesterol in HDL [Mass ratio] 5.1 {ratio} Abnormal [facility] Work Phone: Comment on above: REF VALUESDESIRABLE < 3.4HIGH RISK > 5.0 Triglyceride [Mass/Vol] 164 mg/dL above high threshold 0 - 149 [facility] Work Phone: Comment on above: . AGE DESIRABLE BORD ADIS HIGH HIGH VERY HIGH 0 D-90 D 19 - 174 ---- ---- ----91 D- 9 Y 0 - 74 75 - 99 >/= 100 ---- 10-19 Y 0 - 89 90 - 129 >/= 130 ---- 20-24 Y 0 - 114 115 - 149 >/= 150 ---- >24 Y 0 - 149 150 - 199 200- 499 >/= 500. Venipuncture immediately after or during the administration of Metamizole may lead to falsely low results. Testing should be performed immediately prior to Metamizole dosing. Lipid Panel 33 mg/dL 0 - 40 [facility] Work Phone: Office Visit (Internal Medic ine)on 2020 Follow-up visit Diagnoses/Problems Assessed Family history of cardiac disorder (V17.49) (Z82.49) : Father Family history of lung disease (V19.8) (Z83.6) : Mother Never smoker Social alcohol use (V49.89) (Z78.9) History of Hypertension, essential, benign (401.1) (I10) History of infectious mononucleosis (V12.09) (Z86.19) History of hypercholesterolemia (V12.29) (Z86.39) Dyslipidemia (272.4) (E78.5) Essential hypertension (401.9) (I10) Orders Essential hypertension Hemoglobin A1C; Status:Active; Requested for:[id number]; Perform:Lab Services - Lab To Draw (Blood Test); Due:02Mar2021;Ordered; For:Essential hypertension; Ordered By:Tino Cardenas; Lipid Panel; Status:Active; Requested for:[id number]; Perform:Lab Services - Lab To Draw (Blood Test); Due:64Yag8669;Ordered; For:Essential hypertension; Ordered By:Tino Cardenas; TSH WITH REFLEX TO FREE T4 IF ABNORMAL; Status:Active; Requested for:[id number]; Perform:Lab Services - Lab To Draw (Blood Test); Due:58Dyw1474;Ordered; For:Essential hypertension; Ordered By:Tino Cardenas; SocHx: Never smoker Tobacco Use Screening; Status:Complete; Done: 15Uou2030 Perform:Not Applicable;Ordered; For:SocHx: Never smoker; Ordered By:Madina Verma; Patient Discussion/Summary Exam and presentation are fairly unremarkable. Normal course for mono was reviewed with the patient. Patient advised to watch for right upper and left upper quadrant pain. TSH, A1c, and lipid profile were ordered. Other labs from ER visit reviewed and reviewed with the patient. Will have patient follow-up in 6 months or as needed. Chief Complaint PT HERE FOR NEW ESTABLISH AND FU ER PT STATES CONTINUES FEELING WEAK AND TIRED DISCONTINUED ANTIBIOTIC AFTER 4 DAYS PER ER Adult Risk Screening Initial Fall Risk Screening: DAVID has not fallen in the last 6 months. Tobacco Screening: DAVID does not use tobacco. History of Present Illness Patient presents to [facility]. Patient was recently diagnosed with mononucleosis per ED visit 21 November 2020. Patient reported prior fever, chills, body aches, and overwhelming fatigue. Extensive work-up was obtained showing positive Becky-Perry IgG, antibody, and nuclear antigen. CT abdomen showed spleen within upper limits of normal and perihepatic lymphadenopathy. Currently patient reports improvement of symptoms except persistent fatigue and intermittent body aches. Appetite is improving though still slightly reduced. Patient has been treating aches and pains with Tylenol. Patient has medical history that includes dyslipidemia managed with Crestor. Patient also has medical history of hypertension managed with amlodipine and Hyzaar. Review of Systems Review of Systems Constitutional: See HPI Eye: No recent visual problem. Respiratory: No shortness of breath, No cough. Cardiovascular: No chest pain. Gastrointestinal: No abdominal pain, No nausea, No vomiting. Genitourinary: No dysuria, No hematuria. Musculoskeletal: No decreased range of motion. Integumentary: No rash. Neurologic: Alert and oriented X4, No numbness, No tingling. All other systems are negative Past Medical History Problems History of hypercholesterolemia (V12.29) (Z86.39) History of infectious mononucleosis (V12.09) (Z86.19) History of Hypertension, essential, benign (401.1) (I10) Family History Mother Family history of lung disease (V19.8) (Z83.6) Father Family history of cardiac disorder (V17.49) (Z82.49) Social History Problems Never smoker Social alcohol use (V49.89) (Z78.9) Allergies Medication No Known Drug Allergies Recorded By: Madina Verma; 2020 8:56:24 AM Current Meds Medication NameInstruction amLODIPine Besylate 5 MG Oral TabletTAKE 1 TABLET DAILY DIRECTED. Crestor 20 MG Oral Tablet EQL Vitamin C 500 MG Oral Tablet Hyzaar 100-12.5 MG Oral Tablet Vitals Vital Signs Recorded: [id number] 08:43AM Jywqtdmoqwl49 F Heart Rate75 Vfpsszxh323 Wvgpbmuvf57 Height6 ft Eaidpg100 lb BMI Bgoypfdmrv64.35 kg/m2 BSA Calculated2.17 Physical Exam General: Alert and oriented, No acute distress. Eye: Pupils are equal, round and reactive to light, Extraocular movements are intact, Normal conjunctiva. HENT: Normocephalic, Normal hearing, Oral mucosa is moist, No pharyngeal erythema, No sinus tenderness. Neck: Supple, Non-tender, No lymphadenopathy. Respiratory: Lungs are clear to auscultation, Respirations are non-labored, Breath sounds are equal, Symmetrical chest wall expansion. Cardiovascular: Normal rate, Regular rhythm; no carotid bruits Gastrointestinal: Non-distended, nontender, no palpable mass; no hepatosplenomegaly Musculoskeletal: Normal range of motion and strength of upper and lower extremities bilaterally Integumentary: Warm, Dry, Intact, No pallor, No rash. Neurologic: Alert, Oriented, Normal sensory, Normal motor function, No focal deficits, Cranial Nerves II-XII are grossly intact, Normal deep tendon reflexes. Psyc (more content not included)... Normal [employer]works Bilirubin, Serum Direct - Co njugatedon 11-21-2020 Bilirubin.direct [Mass/Vol] 0.5 mg/dL above high threshold 0.0 - 0.3 [facility] Work Phone: CMV IGM ABon 11-21-2020 CMV IgM IA Qn <30.00 [facility] Work Phone: [phone] Comment on above: REFERENCE RANGE: <30 .00 AU/mL. Interpretive criteria: <30.00 AU/mL No antibody detected 30.00-34.99 AU/mL Equivocal > or = 35.00 AU/mL Antibody detected.Results from any one IgM assay should not beused as a sole determinant of a current or recentinfection. Because an IgM test can yield falsepositive results and low level IgM antibody maypersist for more than 12 months post infection,reliance on a single test result could be misleading.Acute infection is best diagnosed by demonstratingthe conversion of IgG from negative to positive.If an acute infection is suspected, considerobtaining a new specimen and submit for bothIgG and IgM testing in two or more weeks. CT Abdomen and Pelvis with I V Contraston 11-21-2020 CT Abdomen and Pelvis W contrast IV Normal [facility] Work Phone: [phone] Complete Blood Count + Diffe rentialon 11-21-2020 Erythrocyte distribution width (RBC) [Ratio] 12.5 % See Below [facility] Work Phone: [phone] Comment on above: Reference Range: 11. 5 - 14.5 Hematocrit (Bld) [Volume fraction] 45.5 % See Below [facility] Work Phone: [phone] Comment on above: Reference Range: 41. 0 - 52.0 Hemoglobin (Bld) [Mass/Vol] 15.5 g/dL See Below [facility] Work Phone: [phone] Comment on above: Reference Range: 13. 5 - 17.5 MCHC (RBC) [Mass/Vol] 34.1 g/dL See Below [facility] Work Phone: [phone] Comment on above: Reference Range: 32. 0 - 36.0 MCV (RBC) [Entitic vol] 90 fL 80 - 100 [facility] Work Phone: [phone] Platelets (Bld) [#/Vol] 134 10*3/uL below low threshold 150 - 450 [facility] Work Phone: [phone] RBC (Bld) [#/Vol] 5.07 {x10E12/L} See Below [facility] Work Phone: Comment on above: Reference Range: 4.5 0 - 5.90 WBC (Bld) [#/Vol] 4.2 10*3/uL below low threshold 4.4 - 11.3 [facility] Work Phone: Complete Blood Count + Differential SEE MANUAL DIFF [facility] Work Phone: [phone] Complete Blood Count + Differential 0.6 {/100_WBC} [facility] Work Phone: Coronavirus 2019 RNA by PCR, Symptomaticon 11-21-2020 Date and time of symptom onset [id number] [facility] Work Phone: Coronavirus 2019 RNA by PCR, Symptomatic Not detected Normal See Below [facility] Work Phone: Comment on above: SOURCE: Nasal, Nasop haryngealReference Range: Not Detected.This test has received FDA Emergency Use Authorization (EUA) and has been verified by [facility]. This test is only authorized for the duration of time that circumstances exist to justify the authorization of the emergency use of in vitro diagnostic tests for the detection of SARS-CoV-2 virus and/or diagnosis of COVID-19 infection under section 564(b)(1) of the Act, 21 U.S.C. 360bbb-3(b)(1), unless the authorization is terminated or revoked sooner. [facility] is certified under CLIA-88 as qualified to perform high complexity testing. Testing is performed in the [facility] laboratory located at [address] [place] [address].SARS-CoV-2/Flu/RSV Multiplex Test: Fact sheet for providers: https://www.fda.gov/media/163469/downloadFact sheet for patients: https://www.fda.gov/media/672820/download GROUP A STREP, PCRon 021 S. pyogenes Ag Ql (Throat) Not detected See Below [facility] Work Phone: Comment on above: SOURCE: ThroatRefere nce Range: Not Detected This test was performed utilizing an FDA-cleared rapid nucleic acid amplification by PCR to qualitatively detect Group A Streptococci from throat swab specimens without the need for culture confirmation of negative results. Hepatitis Panel, Acute (HCFA )on 11-21-2020 HAV IgM IA Ql Non-Reactive See Below [facility] Work Phone: [phone] Comment on above: SOURCE: Reference Ra nge: NONREACTIVE Biotin interference may cause falsely decreased results. Patients taking a Biotin dose of up to 5 mg/day should refrain from taking Biotin for 24 hours before sample collection. Providers may contact their local laboratory for further information. Hepatitis Panel, Acute (HCFA) Non-Reactive See Below [facility] Work Phone: Comment on above: Reference Range: NON REACTIVE Results from patients taking biotin supplements or receiving high-dose biotin therapy should be interpreted with caution due to possible interference with this test. Providers may contact their local laboratory for further information. Reference Range: NON REACTIVE Biotin interference may cause falsely decreased results. Patients taking a Biotin dose of up to 5 mg/day should refrain from taking Biotin for 24 hours before sample collection. Providers may contact their local laboratory for further information. Laboratory - Chemistry and C hemistry - challengeon 11-21-2020 Albumin BCP dye [Mass/Vol] 3.9 g/dL 3.4 - 5.0 [facility] Work Phone: [phone] ALP [Catalytic activity/Vol] 186 U/L above high threshold 33 - 136 [facility] Work Phone: [phone] ALT With P-5'-P [Catalytic activity/Vol] 137 U/L above high threshold 10 - 52 [facility] Work Phone: [phone] Comment on above: Patients treated wit h Sulfasalazine may generate falsely decreased results for ALT. Anion gap [Moles/Vol] 13 mmol/L 10 - 20 [facility] Work Phone: [phone] AST With P-5'-P [Catalytic activity/Vol] 91 U/L above high threshold 9 - 39 [facility] Work Phone: [phone] Bilirubin [Mass/Vol] 1.5 mg/dL above high threshold 0.0 - 1.2 [facility] Work Phone: [phone] Calcium [Mass/Vol] 9.0 mg/dL 8.6 - 10.3 [facility] Work Phone: [phone] Chloride [Moles/Vol] 99 mmol/L 98 - 107 [facility] Work Phone: [phone] CO2 [Moles/Vol] 24 mmol/L 21 - 32 [facility] Work Phone: [phone] Creatinine [Mass/Vol] 0.81 mg/dL See Below [facility] Work Phone: [phone] Comment on above: Reference Range: 0.5 0 - 1.30 Glucose [Mass/Vol] 101 mg/dL above high threshold 74 - 99 [facility] Work Phone: [phone] Potassium [Moles/Vol] 3.7 mmol/L 3.5 - 5.3 [facility] Work Phone: [phone] Protein [Mass/Vol] 7.0 g/dL 6.4 - 8.2 [facility] Work Phone: [phone] Sodium [Moles/Vol] 132 mmol/L below low threshold 136 - 145 [facility] Work Phone: [phone] Urea nitrogen [Mass/Vol] 19 mg/dL 6 - 23 [facility] Work Phone: [phone] Laboratory - Hematology and Cell countson 11-21-2020 Band form neutrophils/100 WBC (Bld) 22.0 % Abnormal 0.0 - 5.0 [facility] Work Phone: [phone] Basophils/100 WBC (Bld) 0.0 % 0.0 - 2.0 [facility] Work Phone: [phone] Lymphocytes/100 WBC (Bld) 8.0 % See Below [facility] Work Phone: Comment on above: Reference Range: 13. 0 - 44.0 Monocytes/100 WBC (Bld) 8.0 % 2.0 - 10.0 [facility] Work Phone: Laboratory - Microbiology an d Antimicrobial susceptibilityon 11-21-2020 EBV capsid IgG IA Qn (S) Positive Abnormal NEGATIVE [facility] Work Phone: EBV capsid IgM IA Qn (S) Negative NEGATIVE [facility] Work Phone: EBV early IgM IA Qn (S) Positive Abnormal NEGATIVE [facility] Work Phone: EBV nuclear IgG IA Qn (S) Positive Abnormal NEGATIVE [facility] Work Phone: Parainfluenza virus 1 RNA KARY+probe Ql (Unsp spec) Not detected See Below [facility] Work Phone: Comment on above: SOURCE: Nasal, Nasop haryngealReference Range: Not Detected Parainfluenza virus 2 RNA KARY+probe Ql (Unsp spec) Not detected See Below [facility] Work Phone: Comment on above: Reference Range: Not Detected Parainfluenza virus 4 RNA KARY+probe Ql (Unsp spec) Not detected See Below [facility] Work Phone: Comment on above: Reference Range: Not Detected Not Detected results do not preclude Parainfluenza virus infections since adequacy of sample collection or low viral burden may impact the clinical sensitivity of this test method. B. burgdorferi Ab IA Qn (S) 0.64 {EDSON} 0.00-1.20 [facility] Work Phone: Comment on above: When the Borrelia bu rgdorferi Abs, Total by RAFAEL result is negative, no further testing is done.INTERPRETIVE INFORMATION: Borrelia Burgdorferi Abs,Total by RAFAEL 0.99 EDSON or Less: ...... Negative: Antibody to B. burgdorferi not detected. 1.00 - 1.20 EDSON......... Equivocal: Repeat testing in 10-14 days may be helpful. 1.21 EDSON or Greater: ... Positive: Probable presence of antibody to B. burgdorferi detected.Performed By: [employer] [place] [id number] Director: Ariadne Hamm MD Lactate, Levelon 11-21-2020 Lactate [Moles/Vol] 0.8 mmol/L 0.4 - 2.0 [facility] Work Phone: Comment on above: Venipuncture immedia tely after or during the administration of Metamizole may lead to falsely low results. Testing should be performed immediately prior to Metamizole dosing. Lipase, Serumon 11-21-2020 Lipase [Catalytic activity/Vol] 13 U/L 9 - 82 [facility] Work Phone: Comment on above: Venipuncture immedia tely after or during the administration of Metamizole may lead to falsely low results. Testing should be performed immediately prior to Metamizole dosing. N-ydhjbx-m-benzoquinone imine (metabolite of Acetaminophen) will generate erroneously low results in samples for patients that have taken toxic doses of acetaminophen. No Panel Informationon 11-21 SEE BELOW [facility] Work Phone: Comment on above: . EBV INTERPRETATION CHART. VCA-IGG VCA-IGM NA-IGG EA-IGG. PRIMARY ACUTE +/- +/- - +/-LATE ACUTE + +/- +/- +/-RECOVERING + - - +PREVIOUS INFECTION + - +/- - Non-Reactive See Below [facility] Work Phone: Comment on above: Reference Range: NON REACTIVE Not detected See Below [facility] Work Phone: Comment on above: Reference Range: Not Detected NORMAL [facility] Work Phone: 0.04 {x10E9/L} See Below [facility] Work Phone: [phone] Comment on above: Reference Range: 0.0 0 - 0.50 Reference Range: 0.0 0 - 0.70 0.00 {x10E9/L} See Below [facility] Work Phone: [phone] Comment on above: Reference Range: 0.0 0 - 0.10 0.34 {x10E9/L} below low threshold See Below [facility] Work Phone: [phone] Comment on above: Reference Range: 0.1 0 - 1.00 Reference Range: 1.2 0 - 4.80 0.92 {x10E9/L} above high threshold See Below [facility] Work Phone: [phone] Comment on above: Reference Range: 0.0 0 - 0.70 2.52 {x10E9/L} See Below [facility] Work Phone: [phone] Comment on above: Reference Range: 1.2 0 - 7.00 3.44 {x10E9/L} See Below [facility] Work Phone: [phone] Comment on above: Reference Range: 1.2 0 - 7.70 1.0 % 0.0 - 6.0 [facility] Work Phone: [phone] 60.0 % See Below [facility] Work Phone: [phone] Comment on above: Reference Range: 40. 0 - 80.0 Percent differential counts (%) should be interpreted in the context of the absolute cell counts (cells/L). >60 >60 [facility] Work Phone: [phone] Comment on above: CALCULATIONS OF GLO MATED GFR ARE PERFORMED USING THE MDRD STUDY EQUATION FOR THE IDMS-TRACEABLE CREATININE METHODS. CLIN CHEM 2007;53:766-72 Radiologyon 11-21-2020 XR Chest Single view Normal [facility] Work Phone: [phone] TSH - Thyroid Stimulating Ho Nasrin sheppardon 11-21-2020 TSH Qn 3.09 m[IU]/L See Below [facility] Work Phone: [phone] Comment on above: Reference Range: 0.4 4 - 3.98 TSH testing is performed using different testing methodology at [facility] than at other [facility]. Direct result comparisons should only be made within the same method. Urinalysison 11-21-2020 Color (U) Vivian See Below [facility] Work Phone: [phone] Comment on above: Reference Range: STR AW,YELLOW Glucose Ql (U) Negative NEGATIVE [facility] Work Phone: [phone] Ketones Ql (U) 20(1+) Abnormal NEGATIVE [facility] Work Phone: [phone] Leukocyte esterase Test strip Ql (U) Negative NEGATIVE [facility] Work Phone: [phone] pH (U) 5.0 [pH] 5.0 - 8.0 [facility] Work Phone: [phone] Protein (U) [Mass/Vol] 100(2+) Abnormal NEGATIVE [facility] Work Phone: [phone] RBC (U) [#/Vol] Negative NEGATIVE [facility] Work Phone: [phone] Specific gravity (U) [Rel density] 1.038 1 above high threshold See Below [facility] Work Phone: [phone] Comment on above: Reference Range: 1.0 05 - 1.035 Urinalysis Negative NEGATIVE [facility] Work Phone: [phone] Urinalysis 4.0 mg/dL above high threshold 0.0 - 1.9 [facility] Work Phone: [phone] Comment on above: SOME PIGMENTS AND ME DICATIONS MAY CAUSE AFALSE POSITIVE UROBILINOGEN Urinalysis SMALL(1+) Abnormal NEGATIVE [facility] Work Phone: [phone] Urinalysis HAZY CLEAR [facility] Work Phone: [phone] Urinalysis, Microscopicon Urinalysis, Microscopic 4+ [facility] Work Phone: [phone] Urinalysis, Microscopic 1+ Abnormal [facility] Work Phone: [phone] Urinalysis, Microscopic <1 0-5 [facility] Work Phone: [phone] Urinalysis, Microscopic 1 {/HPF} 0-5 [facility] Work Phone: [phone] Auto Diffon 01-01-2019 Basophils (Bld) [#/Vol] 0.0 E3/mcL Normal 0.0-0.[address] [facility] Comment on above: Order Comment: Order Added by Discern Expert. Performed By: #### 2 [id number] #### [employer] [address] [place] [address] Basophils/100 WBC (Bld) 0.6 % Normal 0.0-2.[address] [facility] Comment on above: Order Comment: Order Added by Discern Expert. Performed By: #### 2 [id number] #### [employer] [address] [place] [address] 39[address] Eos Absolute 0.2 E3/mcL Normal 0.0-0.[address] [facility] Comment on above: Order Comment: Order Added by Discern Expert. Performed By: #### 2 [id number] #### [employer] [address] [place] [address]79 Eosinophils/100 WBC (Bld) 3.1 % Normal 0.0-11.[address] [facility] Comment on above: Order Comment: Order Added by Discern Expert. Performed By: #### 2 [id number] #### ORTEGA [employer] [facility] [place] [address] Lymphocytes (Bld) [#/Vol] 1.6 E3/mcL Normal 1.2-3.[address] [facility] Comment on above: Order Comment: Order Added by Discern Expert. Performed By: #### 2 [id number] #### [employer] [facility] [place] [address] Lymphocytes/100 WBC (Bld) 30.5 % Normal 20.0-55.[address] [facility] Comment on above: Order Comment: Order Added by Discern Expert. Performed By: #### 2 [id number] #### [employer] [address] [place] [address] Yancey Absolute 0.5 E3/mcL Normal 0.0-0.[address] [facility] Comment on above: Order Comment: Order Added by Discern Expert. Performed By: #### 2 [id number] #### [employer] [address] [place] [address] Monocytes/100 WBC (Bld) 9.7 % Normal 0.0-10.[address] [facility] Comment on above: Order Comment: Order Added by Discern Expert. Performed By: #### 2 [id number] #### [employer] [address] [place] [address] Neutro Absolute 2.9 E3/mcL Normal 1.4-6.[address] [facility] Comment on above: Order Comment: Order Added by Discern Expert. Performed By: #### 2 [id number] #### [employer] [address] [place] [address] Neutro Auto 56.1 % Normal 37.0-75.[address] [facility] Comment on above: Order Comment: Order Added by Discern Expert. Performed By: #### 2 [id number] #### [employer] [address] [place] [address] CBC w/ Auto Diffon 9 Erythrocyte distribution width (RBC) [Ratio] 13.2 % Normal 11.5-14.[address] [facility] Comment on above: Performed By: #### 2 [id number] #### [employer] [address] [place] [address] Hematocrit (Bld) [Volume fraction] 44.0 % Normal 42.0-52.[address] [facility] Comment on above: Performed By: #### 2 [id number] #### [employer] [address] [place] [address] Hemoglobin (Bld) [Mass/Vol] 14.9 g/dL Normal 13.5-18.[address] [facility] Comment on above: Performed By: #### 2 [id number] #### [employer] [address] [place] [address] MCH (RBC) [Entitic mass] 30.7 pg Normal 27.0-31.[address] [facility] Comment on above: Performed By: #### 2 [id number] #### [employer] [address] [place] [address] MCHC (RBC) [Mass/Vol] 33.8 g/dL Normal 33.0-37.[address] [facility] Comment on above: Performed By: #### 2 [id number] #### [employer] [address] [place] [address] MCV (RBC) [Entitic vol] 90.9 fL Normal 78.0-100.[address] [facility] Comment on above: Performed By: #### 2 [id number] #### [employer] [address] [place] [address] Platelet mean volume (Bld) [Entitic vol] 10.1 fL Normal 7.4-11.[address] [facility] Comment on above: Performed By: #### 2 [id number] #### [employer] [address] [place] [address] Platelets (Bld) [#/Vol] 175 E3/mcL Normal 130-[address] [facility] Comment on above: Performed By: #### 2 [id number] #### [employer] [address] [place] [address] RBC (Bld) [#/Vol] 4.84 E6/mcL Normal 3.90-6.10 [facility] Comment on above: Performed By: #### 2 [id number] #### [employer] [address] [place] [address] WBC (Bld) [#/Vol] 5.2 E3/mcL Normal 3.6-11.0 [facility] Comment on above: Performed By: #### 2 [id number] #### [employer] [address] [place] [address] CMPon 01-01-2019 Albumin [Mass/Vol] 4.3 g/dL Normal 3.4-5.0 [facility] Comment on above: Performed By: #### 2 [id number] #### [facility] [employer] [address] [place] [address] Albumin/Globulin [Mass ratio] 1.8 {ratio} Normal 1.1-1.[address] [facility] Comment on above: Performed By: #### 2 [id number] #### [employer] [address] [place] [address] Alk Phos 50 Int._Unit/L Normal 33-[address] [facility] Comment on above: Performed By: #### 2 [id number] #### [employer] [address] [place] [address] 31728 ALT [Catalytic activity/Vol] 34 Int._Unit/L Normal 10-[address] [facility] Comment on above: Performed By: #### 2 [id number] #### [facility] [employer] [address] [place] [address] Anion gap [Moles/Vol] 9 mmol/L Low 10-[address] [facility] Comment on above: Performed By: #### 2 [id number] #### [facility] [employer] [address] [place] [address] AST [Catalytic activity/Vol] 26 Int._Unit/L Normal 9-[address] [facility] Comment on above: Performed By: #### 2 [id number] #### [employer] [address] [place] [address] 60[address] Bili Total 0.85 mg/dL Normal 0.00-1.[address] [facility] Comment on above: Performed By: #### 2 [id number] #### [employer] [address] [place] [address] Calcium [Mass/Vol] 9.6 mg/dL Normal 8.6-10.3 [facility] Comment on above: Performed By: #### 2 [id number] #### [facility] [employer] [address] [place] [address] 26728 Chloride [Moles/Vol] 104 mmol/L Normal 98-[address] [facility] Comment on above: Performed By: #### 2 [id number] #### [facility] [employer] [address] [place] [address] CO2 [Moles/Vol] 28.0 mmol/L Normal 21.0-32.0 [facility] Comment on above: Performed By: #### 2 [id number] #### [employer] [address] [place] [address] Creatinine [Mass/Vol] 1.1 mg/dL Normal 0.5-1.[address] [facility] Comment on above: Performed By: #### 2 [id number] #### [employer] [address] [place] [address] Globulin (S) [Mass/Vol] 2.0 g/dL Normal 2.0-4.[address] [facility] Comment on above: Performed By: #### 2 [id number] #### [employer] [address] [place] [address] Glucose [Mass/Vol] 106 mg/dL High 70-99 [facility] Comment on above: Performed By: #### 2 [id number] #### [employer] [address] [place] [address]66 Potassium [Moles/Vol] 3.6 mmol/L Normal 3.5-5.[address] [facility] Comment on above: Performed By: #### 2 [id number] #### [employer] [address] [place] [address] 36385 Protein [Mass/Vol] 6.7 g/dL Normal 6.4-8.2 [facility] Comment on above: Performed By: #### 2 [id number] #### [employer] [address] [place] [address] 19307 Sodium [Moles/Vol] 138 mmol/L Normal 136-145 [facility] Comment on above: Performed By: #### 2 [id number] #### [employer] [address] [place] [address] 86654 Urea nitrogen [Mass/Vol] 21 mg/dL Normal 6-[address] [facility] Comment on above: Performed By: #### 2 [id number] #### [employer] [address] [place] [address] 10291 Urea nitrogen/Creatinine [Mass ratio] 19.1 ratio Normal 5.4-30.[address] [facility] Comment on above: Performed By: #### 2 [id number] #### [employer] [address] [place] [address], [place] [address] Lipid Profileon 01-01-2019 Cholesterol [Mass/Vol] 192 mg/dL Normal 0-[address] [facility] Comment on above: Result Comment: ELIZABETH Larson CHOLEESTEROL: <200 NORMAL 200 - 239 BORDERLINE HIGH >240 HIGH Performed By: #### 3 [id number] #### [employer] [facility] [place] [address] Cholesterol in HDL [Mass/Vol] 57 mg/dL Normal 40-[address] [facility] Comment on above: Performed By: #### 3 [id number] #### [employer] [address] [place] [address]245 Cholesterol in LDL [Mass/Vol] 121 mg/dL Normal 0-[address] [facility] Comment on above: Result Comment: <100 OPTIMAL 100-129 NEAR / ABOVE OPTIMAL 130-159 BORDERLINE HIGH 160-189 HIGH >190 VERY HIGH CALC LDL NOT VALID WHEN TRIGLYCERIDE IS >400 MG/DL Performed By: #### 3 [id number] #### [employer] [address] [place] [address]1059 Cholesterol in VLDL [Mass/Vol] 14 mg/dL Normal 0-[address] [facility] Comment on above: Performed By: #### 3 [id number] #### [employer] [address] [place] [address] 82844 Triglyceride [Mass/Vol] 72 mg/dL Normal 0-[address] [facility] Comment on above: Result Comment: AGE DESIRABLE BORDERLINE HIGH 91 D - 9 Y 0 - 74 75 - 99 > 100 10 - 19 Y 0 - 89 90 - 129 > 130 20 -24 Y 0 - 114 115 - 149 > 150 > 25 0 - 149 150 - 199 200 - 499 Performed By: #### 3 [id number] #### [employer] [facility] [place] [address] UA Completeon 01-01-2019 Color (U) Yellow Normal Yellow [facility] Comment on above: Performed By: #### 8 [id number] #### [employer] Urinalysis Automated [address]section [address] [place] [address] Glucose (U) [Mass/Vol] Negative Normal Negative [facility] Comment on above: Performed By: #### 8 [id number] #### [employer] Urinal[facility] Automated [address]section [address] [place] [address] Ketones Ql (U) Negative Normal Negative [facility] Comment on above: Performed By: #### 8 [id number] #### [employer] Urinalysis Automated Subsection [facility] [place] [address] UA Blood Negative Normal Negative [facility] Comment on above: Performed By: #### 8 [id number] #### [employer] Urinalysis Automated Subsection [facility] [place] [address] UA Amorph Chloe 1+ /HPF Abnormal None [facility] Comment on above: Performed By: #### 8 [id number] #### [employer] Urinalysis Automated Subsection [facility] [place] [address] UA Clarity Turbid Abnormal Clear [facility] Comment on above: Performed By: #### 8 [id number] #### [employer]section [address] [place] [address] UA Leuk Est Negative Normal Negative [facility] Comment on above: Performed By: #### 8 [id number] #### [employer] Urinalysis Automated Subsection [facility] [place] [address] UA Mucous Moderate Abnormal Trace [facility] Comment on above: Performed By: #### 8 [id number] #### [employer] Urinal[employer]section [address] [place] [address] UA Nitrite Negative Normal Negative [facility] Comment on above: Performed By: #### 8 [id number] #### [employer] Urinalysis Automated Subsection [facility] [place] [address] UA pH 5.0 Normal 4.6-8.[address] [facility] Comment on above: Performed By: #### 8 [id number] #### [employer] Urinalysis Automated Subsection [facility] [place] [address] UA Protein Negative Normal Negative [facility] Comment on above: Performed By: #### 8 [id number] #### [employer] Urinalysis Automated Subsection [facility] [place] [address] UA Spec Grav 1.031 High 1.003-1.[address] [facility] Comment on above: Performed By: #### 8 [id number] #### [employer] Urinalysis Automated Subsection [facility] [place] [address] UA Urobilinogen Negative Normal [facility] Comment on above: Result Comment: Due to a manufacturing issue, low positive urobilinogen results may be fasely positive. Correlate with urine bilirubin and additional clinical/laboratory findings to assess the risk of hemolytic anemia or liver disease. If clinically indicated, repeat testing with an alternate method is available by contacting the laboratory within 24 hours. Performed By: #### 8 [id number] #### [employer] Urinalysis Automated [employer]section [address] [place] [address] Urobilinogen Qn (U) Negative Normal Negative [facility] Comment on above: Performed By: #### 8 [id number] #### [employer] Urinalysis Automated Subsection [address] [place] [address] 18727 eGFRon 01-01-2019 GFR/1.73 sq M predicted among non-blacks MDRD (S/P/Bld) [Vol rate/Area] mL/min/{1.73_m2} Normal [facility] Comment on above: Order Comment: Order added by Discern Expert. Performed By: #### 1 [id number] #### [employer] [address] [place] [address] Hep Func Panelon 06-29-2018 Albumin [Mass/Vol] 4.4 g/dL Normal 3.4-5.0 [facility] Comment on above: Performed By: #### 2 [id number] #### [employer] [facility] [place] [address] Albumin/Globulin [Mass ratio] 2.1 {ratio} High 1.1-1.[address] [facility] Comment on above: Performed By: #### 2 [id number] #### [employer] [address] [place] [address] Alk Phos 56 Int._Unit/L Normal 33-[address] [facility] Comment on above: Performed By: #### 2 [id number] #### [employer] [address] [place] [address] ALT [Catalytic activity/Vol] 40 Int._Unit/L Normal 10-[address] [facility] Comment on above: Performed By: #### 2 [id number] #### [employer] [address] [place] [address] AST [Catalytic activity/Vol] 36 Int._Unit/L Normal 9-[address] [facility] Comment on above: Performed By: #### 2 [id number] #### [employer] [place] [place] [address] Bili Direct 0.14 mg/dL Normal 0.00-0.[address] [facility] Comment on above: Performed By: #### 2 [id number] #### [employer] [address] [address] Bili Indirect 0.76 mg/dL Normal [facility] Comment on above: Result Comment: No e stablished ranges available for the indirect bilirubin Performed By: #### 2 [id number] #### [employer] [address] [address] Bili Total 0.90 mg/dL Normal 0.00-1.[address] [facility] Comment on above: Performed By: #### 2 [id number] #### [employer] [address] [address] Globulin (S) [Mass/Vol] 2.0 g/dL Normal 2.0-4.[address] [facility] Comment on above: Performed By: #### 2 [id number] #### [employer] [address] [address] Protein [Mass/Vol] 6.5 g/dL Normal 6.4-8.2 [facility] Comment on above: Performed By: #### 2 [id number] #### [employer] [address] [address] Lipid Profileon 06-29-2018 Cholesterol [Mass/Vol] 194 mg/dL Normal 0-[address] [facility] Comment on above: Performed By: #### 3 [id number] #### [employer] [address] [place] [address] Cholesterol in HDL [Mass/Vol] 48 mg/dL Normal 40-[address] [facility] Comment on above: Performed By: #### 3 [id number] #### [employer] [address] [place] [address] Cholesterol in LDL [Mass/Vol] 117 mg/dL Normal 0-[address] [facility] Comment on above: Performed By: #### 3 [id number] #### [employer] [address] [place] [address] Cholesterol in VLDL [Mass/Vol] 29 mg/dL Normal 0-[address] [facility] Comment on above: Performed By: #### 3 [id number] #### [employer] [address] [place] [address] Triglyceride [Mass/Vol] 144 mg/dL Normal 0-[address] [facility] Comment on above: Result Comment: AGE DESIRABLE BORDERLINE HIGH 91 D - 9 Y 0 - 74 75 - 99 > 100 10 - 19 Y 0 - 89 90 - 129 > 130 20 - 24 Y 0 - 114 115 - 149 > 150 > 25 0 - 149 150 - 199 200 - 499 Performed By: #### 3 [id number] #### [employer] [address] [place] [address] Vital Signs Date Time Vital Sign Value Performing Clinician Facility 03-19-2024 07:27040 Body height 182.9 cm Angie Reisman OEM SALES MANAGER-WAREHOUSE PACKAGING SUPERVISOR Work Phone: [facility] 03-19-2024 07:27-0400 Body mass index (BMI) [Ratio] 30.19 kg/m2 Angie Reisman OEM SALES MANAGER-WAREHOUSE PACKAGING SUPERVISOR Work Phone: [facility] 03-19-2024 07:27-0400 Body weight 100.97 kg Angie Reisman OEM SALES MANAGER-WAREHOUSE PACKAGING SUPERVISOR Work Phone: [facility] 03-19-2024 07:27-0400 Diastolic blood pressure 85 mm[Hg] Angie Reisman OEM SALES MANAGER-WAREHOUSE PACKAGING SUPERVISOR Work Phone: [facility] 03-19-2024 07:27-0400 Heart rate 68 /min Angie Reisman OEM SALES MANAGER-WAREHOUSE PACKAGING SUPERVISOR Work Phone: [facility] 03-19-2024 07:27-0400 Systolic blood pressure 153 mm[Hg] Angie Reisman OEM SALES MANAGER-WAREHOUSE PACKAGING SUPERVISOR Work Phone: [facility] 12-01-2021 07:26-0400 Body height 182.88 cm Tino M Newbill Work Phone: [facility] Work Phone: 12-01-2021 07:26-0400 Body mass index (BMI) [Ratio] 29.72 kg/m2 Tino Osmany Jasonl Work Phone: [facility] Work Phone: 12-01-2021 07:26-0400 Body surface area Derived from formula 2.21 m2 Tino Osmany Jasonl Work Phone: [facility] Work Phone: 12-01-2021 07:26-0400 Body weight 99.38 kg Tino Jasonl Work Phone: [facility] Work Phone: 12-01-2021 07:26-0400 Diastolic blood pressure 80 mm[Hg] Tino Jasonl Work Phone: [facility] Work Phone: 12-01-2021 07:26-0400 Heart rate 64 /min Tino Jasonl Work Phone: [facility] Work Phone: 12-01-2021 07:26-0400 Systolic blood pressure 135 mm[Hg] Tino Jasonl Work Phone: [facility] Work Phone: 06-02-2021 08:00-0500 Body height 182.88 cm Tino Jasonl Work Phone: [facility] Work Phone: 06-02-2021 08:00-0500 Body mass index (BMI) [Ratio] 30.04 kg/m2 Tino Osmany Newbill Work Phone: [facility] Work Phone: 06-02-2021 08:00-0500 Body surface area Derived from formula 2.22 m2 Tino Cardenas Work Phone: [facility] Work Phone: 06-02-2021 08:00-0500 Body temperature 98.4 [degF] Tino Cardenas Work Phone: [facility] Work Phone: 06-02-2021 08:00-0500 Body weight 100.47 kg Tino Cardenas Work Phone: [facility] Work Phone: 06-02-2021 08:00-0500 Diastolic blood pressure 81 mm[Hg] Tion Cardenas Work Phone: [facility] Work Phone: 06-02-2021 08:00-0500 Heart rate 70 /min Tino Cardenas Work Phone: [facility] Work Phone: 06-02-2021 08:00-0500 Systolic blood pressure 149 mm[Hg] Tino Cardenas Work Phone: [facility] Work Phone: 2020 08:43-0400 Body height 182.88 cm Tino Cardenas Work Phone: [facility] Work Phone: 2020 08:43-0400 Body mass index (BMI) [Ratio] 28.35 kg/m2 Tino Cardenas Work Phone: [facility] Work Phone: 2020 08:43-0400 Body surface area Derived from formula 2.17 m2 Tino Cardenas Work Phone: [facility] Work Phone: 2020 08:43-0400 Body temperature 98 [degF] Tino Cardenas Work Phone: [facility] Work Phone: 2020 08:43-0400 Body weight 94.8 kg Tino Cardenas Work Phone: [facility] Work Phone: 2020 08:43-0400 Diastolic blood pressure 80 mm[Hg] Tino Ceron Newmonica Work Phone: [facility] Work Phone: 2020 08:43-0400 Heart rate 75 /min Tino Cardenas Work Phone: [facility] Work Phone: 2020 08:43-0400 Systolic blood pressure 130 mm[Hg] Tino Cardenas Work Phone: [facility] Work Phone: 11-21-2020 19:53-0400 Diastolic blood pressure 90 mm[Hg] Jose Dela Cruz Other Phone: [facility] 11-21-2020 19:53-0400 Heart rate 70 /min Jose Dela Cruz Other Phone: [facility] 11-21-2020 19:53-0400 Respiratory rate 18 /min Jose Dela Cruz Other Phone: [facility] 11-21-2020 19:53-0400 SaO2% (BldA) [Mass fraction] 98 % Jose Dela Cruz Other Phone: [facility] 11-21-2020 19:53-0400 Systolic blood pressure 148 mm[Hg] Jose Dela Cruz Other Phone: [facility] 11-21-2020 12:41-0400 Body height 187.9 cm Jose Dela Cruz Other Phone: [facility] 11-21-2020 12:41-0400 Body temperature 97.88 [degF] Jose Dela Cruz Other Phone: [facility] 11-21-2020 12:41-0400 Body weight 97.8 kg Jose Dela Cruz Other Phone: [facility] Encounters Encounter Date Encounter Type Care Provider Facility Start: 08-14-2024 End: 08-14-2024 ambulatory SELF Facility:[facility] Start: 04-12-2024 End: 04-12-[address] [facility] Start: 04-12-2024 End: 04-12-2024 Encounter for general adult medical examination without abnormal findings ANGIE Shannan [facility] Start: 03-19-2024 End: 03-19-2024 Office outpatient visit 25 minutes Angiebrenda Ibarra OEM SALES MANAGER-WAREHOUSE PACKAGING SUPERVISOR Work Phone: [facility] Comment on above: Health maintenance e xamination (Primary Dx); Primary hypertension; Polyarthralgia; Screening for prostate cancer; Arthritis of big toe Start: 03-19-2024 End: 03-19-2024 Patient encounter status Angie Ibarra OEM SALES MANAGER-WAREHOUSE PACKAGING SUPERVISOR Work Phone: [facility] Work Phone: Start: 03-19-2024 End: 03-19-2024 ambulatory [facility] Start: 03-19-2024 End: 03-19-2024 Encounter for general adult medical examination without abnormal findings ANGIE Shannan [facility] Start: 06-21-2023 End: 06-21-2023 Patient encounter procedure Ara Zaman OD Work Phone: Optometry Comment on above: Hypermetropia of bot h eyes (Primary Dx); Regular astigmatism of both eyes; Presbyopia; Vitreous floaters of both eyes Start: 06-01-2022 End: 06-01-2022 Patient encounter procedure Ara Zaman OD Work Phone: [facility] Comment on above: Hypermetropia of bot h eyes (Primary Dx); Regular astigmatism of both eyes; Presbyopia; Chronic dryness of both eyes; Subconjunctival hemorrhage of left eye Start: 04-19-2022 AUDIT Tino Cardenas Work Phone: [facility] Work Phone: Start: 02-18-2022 AUDIT Tino Cardenas Work Phone: [facility] Work Phone: Start: 12-14-2021 AUDIT Tino Cardenas Work Phone: [facility] Work Phone: Start: 12-08-2021 Result Review Tino Cardenas Work Phone: [facility] Work Phone: Start: 12-01-2021 Office outpatient vi sit 15 minutes Tino Cardenas Work Phone: [facility] Work Phone: Start: 11-22-2021 Refill Jose Fowler MD Work Phone: [facility] Comment on above: Refill Request Start: 06-02-2021 Office outpatient vi sit 15 minutes Tino Osmany Husseinmonica Work Phone: [facility] Work Phone: Start: 12-03-2020 Chart Update Tino Osmany Husseinmonica Work Phone: [facility] Work Phone: Start: 2020 Current tobacco non- user cad cap copd pv dm Tino Cardenas Work Phone: [facility] Work Phone: Start: 11-21-2020 End: 11-21-2020 Emergency department patient visit [facility] Start: 05-04-2015 Repair arterial blockage Vik Dela Cruz MD Work Phone: [facility] Work Phone: Procedures Date Procedure Procedure Detail Performing Clinician Start: 04-14-2023 Lipid 1996 panel - S roe or Plasma Ara Zaman II, OD Work Phone: Start: 01-01-2019 [object Object] Comment on above: Result Comment: AGE- SPECIFIC REFERENCE RANGES FOR SERUM PSA REFERENCE RANGE NG/ML AGE ASIANS BLACKS WHITE 40-49 0-2 0-2 0-2.5 50-59 0-3 0-4 0-3.5 60-69 0-4 0-4.5 0-4.5 70-79 0-5 0-5.5 0-6.5 PSA INCREASES WITH AGE, RACE, AND EJACULATION WITHIN 48 HRS. [facility] VOL24,NO.2, , PG.339 Performed By: #### 1 [id number] #### [employer] [address] [place] [address] Plan of Treatment Date Care Activity Detail Author Start: 2033 RSV High Risk: (Elde rly (60+) or Population) (1 - 1-dose 75+ series) RSV High Risk: (Elderly (60+) or Population) (1 - 1-dose 75+ series) [facility] Start: 03-23-2033 DTaP/Tdap/Td Vaccine s (2 - Td or Tdap) DTaP/Tdap/Td Vaccines (2 - Td or Tdap) [facility] Start: 04-14-2028 Lipid panel [facility] Start: 04-14-2028 Prostate specific antigen measurement Prostate Cancer Screening Discussion [facility] Start: 04-14-2026 Diabetes Screening Diabetes Screenin g [facility] Start: 09-17-2024 End: 09-17-2024 Patient encounter procedure 09/17/2024 7:30 AM EDT Office Visit [facility] [address] [place] [address] Angie Ibarra, OEM SALES MANAGER-WAREHOUSE PACKAGING SUPERVISOR [address] [facility] [place] [address] [facility] Start: 03-19-2024 End: 03-19-2025 CBC W Auto Differential panel - Blood CBC and Auto Differential Lab Routine Health maintenance examination Expected: 03/19/2024 (Approximate), Expires: 03/19/2025 [facility] Work Phone: Comment on above: Expected: 03/19/2024 (Approximate), Expires: 03/19/2025 Start: 03-19-2024 End: 03-19-2025 Comprehensive metabolic 2000 panel - Serum or Plasma Comprehensive Metabolic Panel Lab Routine Primary hypertension Expected: 03/19/2024 (Approximate), Expires: 03/19/2025 [facility] Work Phone: Comment on above: Expected: 03/19/2024 (Approximate), Expires: 03/19/2025 Start: 03-19-2024 End: 03-19-2025 Hemoglobin A1c/Hemoglobin.total in Blood Hemoglobin A1C Lab Routine Health maintenance examination Expected: 03/19/2024 (Approximate), Expires: 03/19/2025 [facility] Work Phone: Comment on above: Expected: 03/19/2024 (Approximate), Expires: 03/19/2025 Start: 03-19-2024 End: 03-19-2025 Lipid 1996 panel - Serum or Plasma Lipid Panel Lab Routine Primary hypertension Expected: 03/19/2024 (Approximate), Expires: 03/19/2025 [facility] Work Phone: Comment on above: Expected: 03/19/2024 (Approximate), Expires: 03/19/2025 Start: 03-19-2024 End: 03-19-2025 Prostate specific Ag [Mass/volume] in Serum or Plasma Prostate Spec.Ag,Screen Lab Routine Screening for prostate cancer Expected: 03/19/2024 (Approximate), Expires: 03/19/2025 [facility] Work Phone: Comment on above: Expected: 03/19/2024 (Approximate), Expires: 03/19/2025 Start: 03-19-2024 End: 03-19-2025 TSH with reflex to Free T4 if abnormal TSH with reflex to Free T4 if abnormal Lab Routine Health maintenance examination Expected: 03/19/2024 (Approximate), Expires: 03/19/2025 [facility] Work Phone: Comment on above: Expected: 03/19/2024 (Approximate), Expires: 03/19/2025 Start: 01-28-2024 COVID-19 Vaccine () COVID-19 Vaccine ( season) [facility] Start: 01-28-2024 Influenza vaccination Influenza Vacc ine (#1) [facility] Start: 01-02-2024 PROSTATE CANCER SCREENING DISCUSSION PROSTATE CANCER SCREENING DISCUSSION [facility] Start: 12-03-2023 Pneumococcal Vaccine : 65+ Years (1 of 1 - PCV) Pneumococcal Vaccine: 65+ Years (1 of 1 - PCV) [facility] Start: 05-29-2023 Depression Assessment Depression Ass essment [facility] Start: 01-27-2023 Covid-19 Vaccine ( season) Covid-19 Vaccine ( season) [facility] Start: 01-27-2023 Influenza vaccination Influenza Vacc ine (#1) [facility] Start: 05-29-2022 DEPRESSION ASSESSMENT DEPRESSION ASS ESSMENT [facility] Start: 01-27-2022 Influenza vaccination C [facility] Start: 12-01-2021 FUV, Provider: Tino Cardenas, Status: Pen, Time: 7:30 AM FUV, Provider: Tino Cardenas, Status: Pen, Time: 7:30 AM [facility] Work Phone: Start: 07-05-2021 COVID-19 VACCINE (3 - Booster for Jennyfer series) COVID-19 VACCINE (3 - Booster for Jennyfer series) [facility] Start: 06-02-2021 FUV, Provider: Tino Cardenas, Status: Pen, Time: 7:50 AM FUV, Provider: Tino Cardenas, Status: Pen, Time: 7:50 AM [facility] Work Phone: Start: 10-29-2020 COVID-19 VACCINE (2 - Booster for Jennyfer series) COVID-19 VACCINE (2 - Booster for Jennyfer series) [facility] Start: 2018 RSV Vaccine (1 - 1-d ose 60+ series) RSV Vaccine (1 - 1-dose 60+ series) [facility] Start: 2013 PROSTATE CANCER SCREENING DISCUSSION PROSTATE CANCER SCREENING DISCUSSION [facility] Start: 2008 SHINGRIX VACCINE (1 of 2) SHINGRIX VACCINE (1 of 2) [facility] Start: 12-03-2003 COLOGUARD (FIT-DNA) COLOGUARD (FIT-D NA) [facility] Start: 12-03-2003 Colonoscopy COLONOSCOPY [facility] Start: 12-03-2003 COLORECTAL CANCER SCREENING COLORECTAL CANCER SCREENING [facility] Start: 12-03-[address] COLONOGRAPHY [facility] Start: 12-03-2003 DIABETES SCREEN DIABETES SCREEN [facility] Start: 12-03-2003 FECAL OCCULT BLOOD FECAL OCCULT BLOO D [facility] Start: 12-03-2003 Screening for malign ant neoplasm of colon [facility] Start: 12-03-2003 SIGMOIDOSCOPY SIGMOIDOSCOPY [facility] Start: 1993 LIPID SCREEN LIPID SCREEN [facility] Start: 1977 Urine microalbumin profile [facility] Start: 1976 HEPATITIS C SCREENING HEPATITIS C [facility] Start: 1976 Hepatitis C screening Hepatitis C [facility] Start: 1976 HIV SCREENING HIV SCREENING [facility] Start: 1976 HIV screening HIV Screening [facility] Start: 1970 Adult depression screening assessment DEPRESSION SCREENING [facility] Start: 12-03-1959 MMR Vaccines (1 of 1 - Standard series) MMR Vaccines (1 of 1 - Standard series) [facility] Start: 1958 Screening for malign ant neoplasm of colon [facility] Start: 1958 Yearly Adult Physical Yearly Adult P hysical [facility] Immunizations Immunization Date Immunization Notes Care Provider Chantell barkley 05-10-2021 Moderna COVID-19 Vac cine 100 MCG/0.5ML Intramuscular Suspension Tino Cardenas Work Phone: [facility] Work Phone: 09-03-2020 Jennyfer COVID-19 Vac cine 0.5 ML Intramuscular Suspension Tino Cardenas Work Phone: [facility] Work Phone: Payers Date Payer Category Payer Managed Care (Private) MEDICAL M [employer] [id number] 2022 Unknown [id number] 2018 Unknown MMO MMO SUPER[employer] PLUS [id number] 2018-Present [phone] [address] [place] [address] PPO [id number] 2017 Unknown 2017 Unknown EYE C[employer] PLAN OF [employer]ISION [id number] 05/29/2017-Present [address] [place] [address] Indemnity [id number] 05-29-2017 Unknown [id number] 1960 Unknown [id number] 1960 Unknown [id number] Social History Date Type Detail Facility [facility] Tobacco smoking consumption unknown [facility] Start: 01-16-2021 End: 03-15-2023 Never smoker Never smoker [facility] Work Phone: Start: 02-05-2014 End: 03-15-2023 Tobacco smoking status NHIS Never smoked tobacco [facility] Start: 02-05-2014 Tobacco use and exposure Former smokeless tobacco user [facility] End: 02-05-1985 History of tobacco use Snuff User [facility] Start: 01-16-2021 End: 03-19-2024 Alcohol intake Current drinker of alcohol (finding) [facility] Start: 12-22-2014 History SDOH Alcohol Comment ocassional [facility] Start: 1960 Sex Assigned At Not on file [facility] Start: 06-01-2022 End: 03-15-2023 Tobacco use panel [facility] National Score (1-100), lower number is lower risk Not on file [facility] Start: 03-15-2023 Tobacco use and exposure Smokeless tobacco non-user [facility] Work Phone: Start: 03-09-2024 End: 03-19-2024 Exposure to SARS-CoV-2 (event) Not sure [facility] Clinical Notes 09-01-2014 to 08-14-2024 Angie Ibarra APRN-WAREHOUSE PACKAGING SUPERVISOR - 03/19/2024 7:30 AM EDTPatient InstructionsCoAra caban II, OD - 06/21/2023 8:58 AM ESTPatient InstructionsAra Zaman II, OD - 06/01/2022 8:54 AM EST Note Date & Type Note Facility 08-14-2024 Note HNO ID: [id number] Author: ARA ZAMAN II, OD Service: ? Author Type: HOME ECONOMICS TEACHER Type: Progress Notes Filed: 08/14/2024 11:51 Note Text: Assessment and Plan H52.03 Hyperopia of both eyes (primary encounter diagnosis) H52.223 Regular astigmatism of both eyes H52.4 Presbyopia Comment: Ocular health maintained with contact lens use. Good fit. Baires stable. Recheck in one year. 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 Retinas flat and intact with no apparent retinal tear or traction. Monitor yearly. H25.13 Nuclear sclerotic cataract of both eyes Comment: Trace cataract in both eyes. Well tolerated at this time. Monitor as instructed. I have confirmed and edited as necessary the relevant HPI, ophthalmic history, ROS, and the neuro exam findings as obtained by others. I have seen and examined David Del Valle. I have discussed the case and the management of this patient's care with the Resident/Fellow, if applicable. I also have reviewed and agree with the assessment and plan as stated above and agree with all of its relevant components. [facility] 03-19-2024 History of Present illness Narrative Subjective Patient ID: David Del Valle is a 63 y.o. male who presents for Hypertension (Yearly visit). HPI Here today for his yearly visit Hypertension, he is still taking his 5mg norvasc and losartan-hydrochlorothiazide. Denies any chest paoin , SOB or palpitations. Reports he was not taking his BP at home, however, he will start checking it daily. Does report he has big toe arthritis that was evaluated by podiatry in the past and he would need surgery. Would like a new referral to podiatry as he is considering that appointment. Review of Systems Constitutional: Negative for chills, fatigue and fever. Cardiovascular: Negative for chest pain, palpitations and leg swelling. Gastrointestinal: Negative for abdominal pain, constipation, diarrhea, nausea and vomiting. Genitourinary: Negative for dysuria and hematuria. Neurological: Negative for light-headedness and headaches. Psychiatric/Behavioral: Negative for sleep disturbance. The patient is not nervous/anxious. Objective BP 153/85 (Patient Position: Sitting) Pulse 68 Ht 1.829 m (6') Wt 101 kg (222 lb 9.6 oz) BMI 30.19 kg/m Physical Exam Cardiovascular: Rate and Rhythm: Normal rate and regular rhythm. Heart sounds: Normal heart sounds. Abdominal: General: Bowel sounds are normal. Musculoskeletal: Right lower leg: No edema. Left lower leg: No edema. Skin: Capillary Refill: Capillary refill takes less than 2 seconds. Neurological: Mental Status: He is alert and oriented to person, place, and time. Assessment/Plan Problem List Items Addressed This Visit None Visit Diagnoses Codes Health maintenance examination - Primary Z00.00 Relevant Orders Hemoglobin A1C CBC and Auto Differential TSH with reflex to Free T4 if abnormal Primary hypertension I10 Relevant Medications amLODIPine (Norvasc) 5 mg tablet Other Relevant Orders Lipid Panel Comprehensive Metabolic Panel Polyarthralgia M25.50 Relevant Medications celecoxib (CeleBREX) 100 mg capsule Screening for prostate cancer Z12.5 Relevant Orders Prostate Spec.Ag,Screen Arthritis of big toe M19.079 Relevant Orders Referral to Podiatry Yearly physical -colonoscopy due 2026, was done at [facility] -lab work ordered Hypertension -continue losartan-hydrochlorothiazide 100-12.5 -continue amlodipine 5mg -if home BP logs are >140/90 will consider increasing hydrochlorothiazide to 25mg Toe arthritis -Will refer to podiatry documented in this encounter [facility] Work Phone: 06-21-2023 Instructions Ara Zaman II, OD - 06/21/2023 8:59 AM EST Assessment and Plan 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 Good fit. Baires stable. Recheck in one year. 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 Retinas flat and intact with no apparent retinal tear or traction. Monitor yearly. I have confirmed and edited as necessary the relevant ophthalmic history, ROS, and the neuro exam findings as obtained by others. I have seen and examined David Del Valle. I have discussed the case and the management of this patient's care with the Resident/Fellow, if applicable. I also have reviewed and agree with the assessment and plan as stated above and agree with all of its relevant components. Ara Zaman II, OD documented in this encounter 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 Good fit. Baires stable. Recheck in one year. 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 Retinas flat and intact with no apparent retinal tear or traction. Monitor yearly. I have confirmed and edited as necessary the relevant ophthalmic history, ROS, and the neuro exam findings as obtained by others. I have seen and examined David Del Valle. I have discussed the case and the management of this patient's care with the Resident/Fellow, if applicable. I also have reviewed and agree with the assessment and plan as stated above and agree with all of its relevant components. Ara Zaman II, OD documented in this encounter 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 Baires stable but gave new materials and baires to try. Recheck in one year. H04.123 Chronic dryness of both eyes Comment: Recommend artificial tears to see if helps redness. H11.32 Subconjunctival hemorrhage of left eye Comment: Discussed self-limiting nature of problem in absence of underlying system complications such as hypertension, diabetes, and use of blood thinners. Patient reports all stable. Patient will monitor for slow resolution. Instruct patient to immediately report any change in condition outside of expected and discussed symptoms. I have confirmed and edited as necessary the relevant ophthalmic history, ROS, and the neuro exam findings as obtained by others. I have seen and examined David Del Valle. I have discussed the case and the management of this patient's care with the Resident/Fellow, if applicable. I also have reviewed and agree with the assessment and plan as stated above and agree with all of its relevant components. Ara Zaman II, OD documented in this encounter 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 Baires stable but gave new materials and baires to try. Recheck in one year. H04.123 Chronic dryness of both eyes Comment: Recommend artificial tears to see if helps redness. H11.32 Subconjunctival hemorrhage of left eye Comment: Discussed self-limiting nature of problem in absence of underlying system complications such as hypertension, diabetes, and use of blood thinners. Patient reports all stable. Patient will monitor for slow resolution. Instruct patient to immediately report any change in condition outside of expected and discussed symptoms. I have confirmed and edited as necessary the relevant ophthalmic history, ROS, and the neuro exam findings as obtained by others. I have seen and examined David Del Valle. I have discussed the case and the management of this patient's care with the Resident/Fellow, if applicable. I also have reviewed and agree with the assessment and plan as stated above and agree with all of its relevant components. Ara Zaman II, OD documented in this encounter [facility] 11-22-2021 Miscellaneous Notes Opened in error no longer Dr Dela Cruz's pt documented in this encounter [facility] 11-21-2020 History of Present illness Narrative Patient presents to [facility].Patient was recently diagnosed with mononucleosis per ED visit 21 November 2020. Patient reported prior fever, chills, body aches, and overwhelming fatigue. Extensive work-up was obtained showing positive Becky-Perry IgG, antibody, and nuclear antigen. CT abdomen showed spleen within upper limits of normal and perihepatic lymphadenopathy.Currently patient reports improvement of symptoms except persistent fatigue and intermittent body aches. Appetite is improving though still slightly reduced. Patient has been treating aches and pains with Tylenol.Patient has medical history that includes dyslipidemia managed with Crestor. Patient also has medical history of hypertension managed with amlodipine and Hyzaar. [facility] Work Phone: 09-01-2014 History of Past i llness Narrative Problem Noted Date Resolved Date Subconjunctival hemorrhage of right eye - Right Eye 09/01/2014 04/25/2017 documented as of this encounter (statuses as of 11/22/2021) [facility] History of Past illness Narrative* Problem Noted Date Resolved Date Subconjunctival hemorrhage of right eye - Right Eye 09/01/2014 04/25/2017 documented as of this encounter (statuses as of 06/02/2022) [facility] History of Past illness Narrative* Problem Noted Date Diagnosed Date Resolved Date Subconjunctival hemorrhage o f right eye - Right Eye 09/01/2014 04/25/2017 documented as of this encounter (statuses as of 06/21/2023) [facility] Diagnosis Hypermetropia of both eyes- Primary Hypermetropia Regular astigmatism of both eyes Regular astigmatism Presbyopia Chronic dryness of both eyes Subconjunctival hemorrhage of left [facility] Hypermetropia of both eyes- Primary Hypermetropia Regular astigmatism of both eyes Regular astigmatism Presbyopia Vitreous floaters of both eyes documented [facility] Diagnosis Health maintenance examination- Primary Unspecified general medical examination Primary hypertension Unspecified essential hypertension Polyarthralgia Pain in joint, multiple sites Screening for prostate cancer Special screening for malignant neoplasm of prostate Arthritis of big toe Osteoarthrosis, unspecified whether generalized or localized, ankle and foot documented in this encounter [facility] Work Phone: History of Present illness Narrative* Patient presents in 6-month follow-up. * Patient recovered from the mononucleosis without issue. Patient states symptoms lasted about a month. * Prior lipid draw showed mixed dyslipidemia despite the Crestor therapy. [facility] Work Phone: History of Present illness Narrative* Patient presents in 6-month follow-up of hypertension and dyslipidemia. Patient reports no issues with medication. Most recent lipid panel was unremarkable. Patient's blood pressure on intake was good today. * Patient reports some lingering effects from having mono. Reports intermittent fatigue but the patient believes it is more than should be attributed to age. Patient also does report dyspnea on exertion and intermittent palpitations. Patient has family history of cardiovascular disease with father having had cardiac surgery of some type. Patient has had 2 stress tests in the past that were unremarkable. [facility] Work Phone: Summary Purpose Family History No Family History Records FoundUnknown Family Member Name Dates Details Family history of cardiac di sorder: Father(V17.49, Z82.49) Status:Active Family history of lung disea se: Mother(V19.8, Z83.6) Status:Active Unknown Family Member Name Dates Details Family history of cardiac di sorder: Father(V17.49, Z82.49) Status:Active Family history of lung disea se: Mother(V19.8, Z83.6) Status:Active Unknown Family Member Name Dates Details Family history of cardiac di sorder: Father(V17.49, Z82.49) Status:Active Family history of lung disea se: Mother(V19.8, Z83.6) Status:Active Unknown Family Member Name Dates Details Family history of cardiac di sorder: Father(V17.49, Z82.49) Status:Active Family history of lung disea se: Mother(V19.8, Z83.6) Status:Active Unknown Family Member Name Dates Details Family history of cardiac di sorder: Father(V17.49, Z82.49) Status:Active Family history of lung disea se: Mother(V19.8, Z83.6) Status:Active Unknown Family Member Name Dates Details Family history of cardiac di sorder: Father(V17.49, Z82.49) Status:Active Family history of lung disea se: Mother(V19.8, Z83.6) Status:Active Unknown Family Member Name Dates Details Family history of cardiac di sorder: Father(V17.49, Z82.49) Status:Active Family history of lung disea se: Mother(V19.8, Z83.6) Status:Active Unknown Family Member Name Dates Details Family history of cardiac di sorder: Father(V17.49, Z82.49) Status:Active Family history of lung disea se: Mother(V19.8, Z83.6) Status:Active Advance Directives No Advanced Directives Records FoundNo Advanced Directives Records FoundNo Advanced Directives Records FoundNo Advanced Directives Records FoundNo Advanced Directives Records FoundNo Advanced Directives Records FoundNo Advanced Directives Records Found Reason for Referral * Transaminits, Leukopenia, Thrombocytopenia, SplenomegalyTransaminits, Leukopenia, Thrombocytopenia,Splenomegaly Chief Complaint * PT HERE FOR NEW ESTABLISH & FU ER * PT STATES CONTINUES FEELING WEAK AND TIRED * DISCONTINUED ANTIBIOTIC AFTER 4 DAYS PER ER Patient here today for follow up 6 months. Patient offers no complaints and states mono symptoms offatigue have resolved.Patient here today for follow up 6 months. Patient states has noticed intermittent cough and questions if d/t new meds. Patient offers no other complaints. Additional Source Comments (unrecognized sect ion and content) No Status Records FoundNo Status Records FoundNo Status Records FoundNo Status Records FoundNo Status Records FoundNo Status Records FoundNo Status Records Found INFORMATION SOURCE (unrecogn ized section and content) DATE CREATED AUTHOR 01/02/2019 [facility] DATE CREATED AUTHOR AUTHOR'S ORGANIZ ATION 12/01/2021 [employer] DATE CREATED AUTHOR AUTHOR'S ORGANIZ ATION 12/07/2021 [facility] DATE CREATED AUTHOR AUTHOR'S ORGANIZ ATION 12/16/2021 [facility] DATE CREATED AUTHOR AUTHOR'S ORGANIZ ATION 03/20/2024 [facility] DATE CREATED AUTHOR AUTHOR'S ORGANIZ ATION 04/18/2024 [facility] DATE CREATED AUTHOR AUTHOR'S ORGANIZ ATION 08/16/2024 [facility] <item> Privacy Markings (unrecogniz ed section and content) Section Author: Nia Peralta PROHIBITION ON REDISCLOSURE OF CONFIDENTIAL INFORMATION This notice accompanies a disclosure of information concerning a client made to you with the consent of such client. Source Comments (unrecognize d section and content) In the event this informatio n is protected by the Federal Confidentiality of Alcohol and Drug Abuse Patient Records regulations: The Federal rules restrict any use of the information to criminally investigate or prosecute any alcohol or drug abuse patient.[facility] the event this information is protected by the Federal Confidentiality of Alcohol and Drug Abuse Patient Records regulations: The Federal rules restrict any use of the information to criminally investigate or prosecute any alcohol or drug abuse patient.[facility] the event this information is protected by the Federal Confidentiality of Alcohol and Drug Abuse Patient Records regulations: The Federal rules restrict any use of the information to criminally investigate or prosecute any alcohol or drug abuse patient.[facility] Reason for Visit (unrecogniz ed section and content) Reason Onset Date Comments Refill Request 11/22/2021 Reason Comments Yearly Exam Contact lens evaluation Reason Comments Hypertension Yearly visit Care Teams (unrecognized sec tion and content) [place] Relationship Specialty Start Date End Date GarethWillis damoncindy Larson [address] [place] [address] PCP - General Internal Medicine 01/16/21 [employer] Relationship Specialty Start Date End Date Shira Funez [address] [place] [address] PCP - General Internal Medicine 01/16/21 [facility] [employer] Relationship Specialty Start Date End Date Shira Funez DO [address] [facility] [place] [address] PCP - General Internal Medicine 01/16/21 [facility] [employer] Relationship Specialty Start Date End Date Tino Cardenas PA-C [facility] [address] [address] PCP - MMO ACO PCP 05/29/21 Angie Ibarra APRN-WAREHOUSE PACKAGING SUPERVISOR [address] [place] [address] [place] [address] PCP - General Family Medicine 03/19/24 Active Administered Medications - up to 3 most recent administrations Administered Medications (un recognized section and content) Medication Order MAR Action Action Date Dose Rate Site PHENYLephrine 2.5 % 1 Drop (AK-DILATE, JS-SYNEPHRINE) 1 Drop, BOTH EYES, DIRECTED, Starting on Mon06/21/23 at 0900, Until Mon06/21/23 at 2058, Administer for dilation PROTECT FROM LIGHT Given 06/21/2023 9:00 AM EST 1 Drop FOR RECORDS PERTAINING TO PATIENTS WHO ARE OR HAVE BEEN ENROLLED IN A CHEMICAL DEPENDENCY/SUBSTANCEABUSE PROGRAM, SOME INFORMATION MAY BE OMITTED. This clinical summary was aggregated from multiple sources. Caution should be exercised in using it in the provision of clinical care. This summary normalizes information from multiple sources, and as a consequence, information in this document may materially change the coding, format and clinical context of patient data. In addition, data may be omitted in some cases. CLINICAL DECISIONS SHOULD BE BASED ON THE PRIMARY CLINICAL RECORDS. [employer] provides no warranty or guarantee of the accuracy or completeness of information in this document.
[2025-02-05 12:58] LABS: Hematocrit 44.2 % (40-54); Hemoglobin 15.3 g/dL (13.0-16.5); Mean Corp Hgb Conc 34.6 g/dL (32-36); Mean Corpuscular Volume 88.4 fL (80-94); Mean Platelet Vol. 11.5 fl (6.2-12.0); Platelet Count 189 K/mm3 (150-450); RBC Distribution Width CV 11.9 % (11.6-14.6); RBC Distribution Width SD 38.0 fl (35.1-43.9); Red Blood Count 5.00 M/mm3 (4.6-6.2); White Blood Count 5.8 K/mm3 (4.4-11.0)
[2025-02-05 13:22] LABS: AST(SGOT) 34 U/L (<=37); Alanine Aminotransfer ALT/SGPT 43 U/L (<=46); Albumin, Serum 4.3 g/dL (3.4-4.8); Alkaline Phosphatase 62 U/L (40-129); Anion Gap 11 (5-15); BUN 13 mg/dL (4-19); BUN/Creat Ratio 13.0 RATIO (10-20); Calcium,Total 9.6 mg/dL (7.6-11.0); Carbon Dioxide 23.9 mmol/L (21.0-32.0); Chloride 104 mmol/L (98-108); Cholesterol 183 mg/dL (<=200); Globulin 2.5 g/dL (2.2-4.2); Glucose 105 mg/dL (70-99); Low Density Lipoprotein Calc. 107 mg/dL; PSA,Total - Annual Screen 1.24 ng/mL (0.02-4.00); Potassium 3.9 mmol/L (3.3-5.1); Triglycerides 123 mg/dL; Very Low Density Lipoprotein 25 mg/dL (5-40); cholesterol:hdl ratio screen 3.59
== END | disposition home or self-care (01) ==
LOC: BIMLAB 08:43
PROVIDERS: PCP Physician Assistant; Referring Provider Physician Assistant; Visit Provider Physician Assistant
DX: I10 Essential (primary) hypertension (principal); E78.5 Hyperlipidemia, unspecified; Z12.5 Encounter for screening for malignant neoplasm of prostate
CPT/HCPCS: 36415; 80053; 80061; 84153; 85027; G0103